=== PATIENT | female | born 1935 | race Caucasian/White ===

== ENCOUNTER → 2017-11-07 | Outpatient (CLI) | payer MEDICARE, OTHER ==
[~2017-11-07] MED LIST: THYROID
== END | disposition home or self-care (01) ==
LOC: LAB EV 10:39 → LAB SHORT 10:39
DX: N39.0 Urinary tract infection, site not specified (principal)
CPT/HCPCS: 87077; 87086; 87186

== ENCOUNTER → 2018-11-29 | Outpatient (CLI) | payer MEDICARE, OTHER | END | disposition home or self-care (01) | LOC: LAB SHORT 15:20 → LAB EV 15:20 | DX: N39.0 Urinary tract infection, site not specified (principal) | CPT/HCPCS: 87086 ==

== ENCOUNTER 2019-02-28 17:58 | Inpatient (IN) | payer MEDICARE, OTHER ==
[~2019-02-28] VITALS: Ht 165.1 cm; Wt 44.1 kg
[~2019-02-28 17:58] MED LIST changes: +EUTHYROX50 MCG PO; -THYROID
[2019-02-28 19:01] LABS: BASOPHILS ABSOLUTE AUTO 0.06 K/mm3 (0.00-0.23); BASOPHILS PERCENT AUTO 1 % (0-2); EOSINOPHILS ABSOLUTE AUTO 0.04 K/mm3 (0.00-0.68); EOSINOPHILS PERCENT AUTO 1 % (0-6); Hematocrit 37.7 % (33.0-51.0); Hemoglobin 12.3 g/dL (11.5-16.0); IMMATURE GRAN ABSOLUTE AUTO 0.01 K/mm3 (0.00-0.10); IMMATURE GRAN PERCENT AUTO 0 % (0-1); LYMPHOCYTES ABSOLUTE AUTO 2.55 K/mm3 (0.84-5.20); LYMPHOCYTES PERCENT AUTO 32 % (21-46); MONOCYTES ABSOLUTE AUTO 0.86 K/mm3 (0.16-1.47); MONOCYTES PERCENT AUTO 11 % (4-13); Mean Corpuscular HGB 31.1 pg (26.0-34.0); Mean Corpuscular HGB Conc 32.6 g/dL (31.5-36.5); Mean Corpuscular Volume 95 fL (80-100); Mean Platelet Volume 11.6 fL (9.1-12.4); NEUTROPHILS ABSOLUTE AUTO 4.38 K/mm3 (1.96-9.15); NEUTROPHILS PERCENT AUTO 55 % (41-73); Platelet Count 160 K/mm3 (150-400); RDW Coefficient Variation 13.2 % (11.7-14.2); RDW Standard Deviation 46.6 fL (35.1-46.3); Red Blood Cell Count 3.95 M/mm3 (3.80-5.20)
[2019-02-28 19:21] LABS: Alanine Aminotransfer (ALT/SGP 25 U/L (12-78); Albumin, Blood 3.6 g/dL (3.4-5.0); Albumin/Globulin Ratio 0.8 (0.8-1.8); Alk Phos 78 U/L (50-136); Anion Gap 7 mmol/L (6-16); Aspartate Aminotrans (AST/SGOT 27 U/L (12-37); Bilirubin, Total 0.4 mg/dL (0.1-1.0); Blood Urea Nitrogen 24 mg/dL (8-24); Bun/Creatinine Ratio 25.8 (12.0-20.0); CO2, Blood 26 mmol/L (21-32); Calcium, Blood 9.6 mg/dL (8.5-10.1); Chloride, Blood 102 mmol/L (98-108); Creatinine, Blood 0.93 mg/dL (0.40-1.00); Globulin, Blood 4.4 g/dL (2.2-4.0); Glomerular Filtration Rate >60 (60-); Glucose, Blood 102 mg/dL (70-99); Potassium, Blood 3.9 mmol/L (3.5-5.5); Sodium, Blood 135 mmol/L (136-145)
[2019-02-28 19:37] LABS: International Normalized Ratio 1.01; Prothrombin Time Results 10.7 Sec (9.7-11.5)
[2019-02-28 21:04] LABS: Magnesium, Blood 1.9 mg/dL (1.6-2.4)
[2019-02-28] MEDS ORDERED: ELIQUIS5 MG PO (21:12)
[2019-02-28] MEDS ORDERED: METO50ER PO (21:12)
[2019-02-28] MEDS ORDERED: CONEST.9 PO (21:13)
--- NOTE | 2019-02-28 22:10 | NUR ---
PT ARRIVAL: Pt arrived to PCU via [facility] accompanied by ED RN at 2210. Pt able to transfer self with minimal assistance from [facility] to PCU bed. VSS, pulse at 100, afib. pt in no apparent sign of distress, denies chest pain or pressure, denies palpitations, denies SOB. Pt on RA. NPO p midnight for cardiology consult. Alert and oriented, able to use call light appropriatley, steady and strong gait. Will continue to monitor.
[2019-03-01 04:09] LABS: Hematocrit 39.6 % (33.0-51.0); Hemoglobin 13.1 g/dL (11.5-16.0); Mean Corpuscular HGB 31.3 pg (26.0-34.0); Mean Corpuscular HGB Conc 33.1 g/dL (31.5-36.5); Mean Corpuscular Volume 95 fL (80-100); Mean Platelet Volume 11.7 fL (9.1-12.4); Platelet Count 172 K/mm3 (150-400); RDW Coefficient Variation 13.3 % (11.7-14.2); Red Blood Cell Count 4.19 M/mm3 (3.80-5.20); White Blood Cell Count 8.03 K/mm3 (4.00-11.30)
[2019-03-01 04:31] LABS: Alanine Aminotransfer (ALT/SGP 24 U/L (12-78); Albumin, Blood 3.6 g/dL (3.4-5.0); Albumin/Globulin Ratio 0.8 (0.8-1.8); Alk Phos 80 U/L (50-136); Anion Gap 7 mmol/L (6-16); Aspartate Aminotrans (AST/SGOT 30 U/L (12-37); Bilirubin, Total 0.4 mg/dL (0.1-1.0); Blood Urea Nitrogen 18 mg/dL (8-24); Bun/Creatinine Ratio 22.1 (12.0-20.0); CO2, Blood 28 mmol/L (21-32); Calcium, Blood 8.8 mg/dL (8.5-10.1); Chloride, Blood 105 mmol/L (98-108); Creatinine, Blood 0.81 mg/dL (0.40-1.00); Globulin, Blood 4.5 g/dL (2.2-4.0); Glomerular Filtration Rate >60 (60-); Glucose, Blood 95 mg/dL (70-99); Potassium, Blood 3.7 mmol/L (3.5-5.5); Sodium, Blood 140 mmol/L (136-145); Total Protein, Blood 8.1 g/dL (6.4-8.2)
--- NOTE | 2019-03-01 05:48 | NUR ---
Shift Summary VSS this shift, no changes from initial shift assessment. Pt remains in Afib but with no outstanding events to note on tele. Pt is asx. alert and oriented, calls appropriately, ind in room, steady gait, self cath BID per pt at baseline. Voiding wnl in bathroom. Pt expresses "constant anxiety" especially related to being in the hosptial. Cardiology to consult pt, called to ans and added to adm this shift. No acute concerns to note overnight.
--- NOTE | 2019-03-01 07:50 | NUR ---
AM NOTE. ASSUMED CARE OF PT APROX 0700. PT IS A&Ox4 AND IND IN THE ROOM. PT WAS ADMITTED FOR AFLUTTER RVR. PT WAS DIG LOADED PER NOC RN REPORT. PT IS IN AFLUTTER IN THE 90'S BUT INCREASES TO THE 120'S W/ACTIVITY. PT DENIES ANY CHEST PAIN/PRESSURE, N/V OR SOB AT THIS TIME. PT'S VS STABLE. PT HAS BEEN VOIDING IN THE TOILET BUT SELF CATHS AT HOME BID. CALL LIGHT IN REACH, WILL CONTINUE TO MONITOR.
--- NOTE | 2019-03-01 17:46 | NUR ---
SHIFT SUMMARY. NO ACUTE NEGATIVE CHANGES NOTED THIS SHIFT. PT DENIES ANY CHEST PAIN/PRESSURE AT THIS TIME. PT IS SCHEDULED TO HAVE [place]ESA SCAN TOMORROW, PT IS TO BE NPO 4 HOURS PRIOR TO SCAN, PER CHUTE MAN IF STRESS TEST COMES BACK OKAY PT CAN D/C AND FOLLOW UP OUTPATIENT. PT'S VS STABLE. PT HAS STATED SHE HAS BEEN VOIDING WELL ALL SHIFT AND HAS NOT NEEDED TO SELF CATH. PT HAS BEEN IND IN THE ROOM. CALL LIGHT IN REACH, BED IS LOCKED AND LOW WILL CONTINUE TO MONITOR UNTIL REPORT IS GIVEN TO ONCOMING RN.
--- NOTE | 2019-03-01 19:15 | NUR ---
ASSESSMENT/ASSUMED CARE PT UP AMB IN ROOM. DENIES PAIN. PT DOING ORAL CARE AND UP TO BATHROOM. GAIT STEADY. LUNGS CLEAR ON ROOMAIR. RESP EVEN AND NONLABORED. HEART RATE IRREGULAR. AFLUTTER. DENIES CHEST PAIN OR PRESSURE. NO EDEMA. BT+ ABD SOFT AND NONTENDER. IV SALINE LOCKED. PT TALKING WITH FAMILY ON THE PHONE.
--- NOTE | 2019-03-02 03:12 | NUR ---
MD CALL PT C/O BURNING, ITCHING AND FREQUENT URINATION. ALSO ACID REFLUX. RECEIVED ORDERS FOR UA AND GI COCKTAIL.
--- NOTE | 2019-03-02 06:09 | NUR ---
SHIFT SUMMARY PT RESTING QUIELTY. DENIES PAIN. C/O BURING, ITCHING AND FREQUENT URINATION. OBTAINED ORDER FOR A UA BUT PT HAS NOT VOIDED YET. VSS. PT TO HAVE A STRESS TEST THIS AM. PT UP IN ROOM AD CINTHIA. REPORT TO ON COMING NURSE
--- NOTE | 2019-03-02 07:29 | NUR ---
AM NOTE. ASSUMED CARE OF PT APROX 0700, PT IS A&Ox4 AND IND IN THE ROOM. PT WAS ADMITTED WITH AFIB/FLUTTER RVR AND IS TO HAVE ONE DAY STRESS TEST TODAY. PT'S VS STABLE AT THIS TIME, PT DENIES CHEST PAIN/PRESSURE. PT SELF CATHS AT HOME AND IS C/O OF "BURNING AND IRRITATION". PT IS TO BE NPO 4 HOURS PRIOR TO STRESS TEST. L/S CLEAR T/O, PT IS ON RA, BT NORMOACTIVE. NO EDEMA NOTED ON ASSESSMENT. WILL CONTINUE TO MONITOR.
[2019-03-02 10:36] LABS: Source, Urine Clean Catch
[2019-03-02 10:42] LABS: Appearance, Urine Cloudy (Clear); Bilirubin, Urine Neg (Neg); Blood, Urine 5+ (Neg); Color, Urine Yellow (P-Yellow); Glucose Qualitative, Urine Neg (Neg); Ketones, Urine Neg (Neg); Leukocyte Esterase, Urine 3+ (Neg); Nitrite, Urine Neg (Neg); Protein, Urine 3+ (Neg); Urobilinogen, Urine NORM (Normal); pH, Urine 6.5 (5.0-8.0)
[2019-03-02 11:01] LABS: White Blood Cells, Urine TNTC /hpf (0-5)
[2019-03-02 11:03] LABS: Bacteria Many /hpf; Squamous Epithelial Cells Rare /hpf (Few)
--- NOTE | 2019-03-02 18:08 | NUR ---
SHIFT SUMMARY. NO ACUTE NEGATIVE CHANGES NOTED THIS SHIFT. PT HAS HAD THE FIRST PART OF HER STRESS TEST AND WILL HAVE THE SECOND PART TOMORROW. PT HAS BEEN IND IN THE ROOM. UA WAS SENT D/T PT C/O OF BURNING AND UTI SYMPTOMS, UA CAME BACK POSITIVE. PT'S VS STABLE. PT DENIES CHEST PAIN/PRESSURE N/V OR SOB. CALL LIGHT IN REACH, BED IS LOCKED AND LOW WILL CONTINUE TO MONITOR UNTIL REPORT IS GIVEN TO ONCOMING RN.
--- NOTE | 2019-03-02 21:36 | NUR ---
ASSUMED CARE OF PATIENT AT APPROXIMATELY 1910 FROM RYAN Caballero RN. PATIENT ALERT AND ORIENTED X4; INDEPENDENT IN ROOM. PATIENT TO HAVE 2ND PART OF STRESS TEST IN AM. PATIENT ANXIOUS AT TIMES; SELF CATHS SELF BID. PATIENT DENIES PAIN, NUMBNESS, TINGLING, DIZZINESS AND NAUSEA. AFLUTTER W/ A RATE IN THE 90'S ON TELE; OXYGEN SATURATION ABOVE 90% ON ROOM AIR. PIV S/L. PATIENT CURRENTLY RESTING IN BED; CALL LIGHT IN REACH; BED IN LOWEST POSISTION; WILL CONTINUE TO MONITOR AND ASSESS UNTIL END OF SHIFT.
[2019-03-03 04:58] LABS: BASOPHILS ABSOLUTE AUTO 0.06 K/mm3 (0.00-0.23); BASOPHILS PERCENT AUTO 1 % (0-2); EOSINOPHILS ABSOLUTE AUTO 0.16 K/mm3 (0.00-0.68); EOSINOPHILS PERCENT AUTO 2 % (0-6); Hematocrit 45.1 % (33.0-51.0); IMMATURE GRAN ABSOLUTE AUTO 0.02 K/mm3 (0.00-0.10); IMMATURE GRAN PERCENT AUTO 0 % (0-1); LYMPHOCYTES ABSOLUTE AUTO 4.43 K/mm3 (0.84-5.20); LYMPHOCYTES PERCENT AUTO 41 % (21-46); MONOCYTES ABSOLUTE AUTO 0.94 K/mm3 (0.16-1.47); MONOCYTES PERCENT AUTO 9 % (4-13); Mean Corpuscular HGB 31.6 pg (26.0-34.0); Mean Corpuscular HGB Conc 33.3 g/dL (31.5-36.5); Mean Corpuscular Volume 95 fL (80-100); Mean Platelet Volume 11.4 fL (9.1-12.4); NEUTROPHILS ABSOLUTE AUTO 5.21 K/mm3 (1.96-9.15); NEUTROPHILS PERCENT AUTO 48 % (41-73); Platelet Count 179 K/mm3 (150-400); RDW Coefficient Variation 13.2 % (11.7-14.2); RDW Standard Deviation 46.1 fL (35.1-46.3); Red Blood Cell Count 4.75 M/mm3 (3.80-5.20); White Blood Cell Count 10.82 K/mm3 (4.00-11.30)
[2019-03-03 05:20] LABS: Albumin, Blood 3.3 g/dL (3.4-5.0); Albumin/Globulin Ratio 0.8 (0.8-1.8); Bilirubin, Total 0.3 mg/dL (0.1-1.0); Bun/Creatinine Ratio 36.3 (12.0-20.0); Calcium, Blood 8.9 mg/dL (8.5-10.1); Creatinine, Blood 0.99 mg/dL (0.40-1.00); Globulin, Blood 4.3 g/dL (2.2-4.0); Magnesium, Blood 2.1 mg/dL (1.6-2.4); Phosphorus, Blood 2.4 mg/dL (2.5-4.9); Total Protein, Blood 7.6 g/dL (6.4-8.2)
--- NOTE | 2019-03-03 06:24 | NUR ---
PATIENT HR INCREASED TO 140'S WHILE PATIENT WAS UP; RECOVERED WHEN PATIENT BACK IN BED. VSS. PATIENT SLEPT ABOUT EIGHT HOURS. WILL CONTINUE TO MONITOR AND ASSESS UNTIL END OF SHIFT.
--- NOTE | 2019-03-03 08:33 | NUR ---
Spoke with the patient at 0745 this morning, just following bedside report given by Stephanie Curry RN. The pt is mildly anxious. States that she has been having multiple bowel movements this morning, which she attributes to having gone so many days without one. No c/o diarrhea. Self-catheterizing which she does at home, twice a day. Heart rate was aflutter at 95 bpm while sleeping, but after bedside report noted that her heart rate was 125 bpm at rest. Blood pressure stable, no c/o pain, dyspnea or discomfort. Plan for second portion of the stress test Lexiscan today.
--- NOTE | 2019-03-03 09:45 | NUR ---
0930 C/O nausea following the Lexiscan. Zofran was given and she is now eating her breakfast.
[2019-03-03] MEDS ORDERED: LANOXIN125 MCG PO (14:32)
[2019-03-03] MEDS ORDERED: ENTRESTO 24 MG1 EACH PO (14:34)
[2019-03-09] MEDS ORDERED: CONEST.9 PO (15:11)
== END 2019-03-03 15:20 | disposition home or self-care (01) | DRG 309 ==
LOC: ER 17:58 → PCU 17:59
PROVIDERS: Emergency Medicine; Hospitalist; ADMIT Internal Medicine
DX: I48.0 Paroxysmal atrial fibrillation (principal); I50.20 Unspecified systolic (congestive) heart failure; E46 Unspecified protein-calorie malnutrition; Z68.1 Body mass index [BMI] 19.9 or less, adult; R64 Cachexia; Z87.891 Personal history of nicotine dependence; I48.92 Unspecified atrial flutter; I42.8 Other cardiomyopathies; F41.9 Anxiety disorder, unspecified; I27.20 Pulmonary hypertension, unspecified; E78.5 Hyperlipidemia, unspecified; I07.1 Rheumatic tricuspid insufficiency; I51.3 Intracardiac thrombosis, not elsewhere classified; I11.0 Hypertensive heart disease with heart failure; I50.82 Biventricular heart failure
CPT/HCPCS: 36415; 71046; 78452; 80053; 81001; 83735; 83880; 84100; 84484; 85025; 85027; 85610; 85730; 93005; 93010; 93017; 93306; 96374; 96375; 96376; 99285-25; A9270; A9500; C8929; G0378; J0706; J1160; J2405; J2785; Q9957

== ENCOUNTER 2019-03-12 05:46 | Day surgery (SDC) | payer MEDICARE, OTHER ==
[~2019-03-12] VITALS: Ht 165.1 cm; Wt 52.0 kg
[~2019-03-12 05:46] MED LIST changes: +CONEST.9 PO; +ELIQUIS5 MG PO; +ENTRESTO 24 MG1 EACH PO; +LANOXIN125 MCG PO; +METO50ER PO
--- NOTE | 2019-03-12 08:45 | NUR ---
DISCHARGE PT REMAINED A&OX3 AND DENIED ANY PAIN DURING RECOVERY. IV DC'D WITH CANULA IN TACT. PT ABLE TO DRESS SELF INDEPENDANTLY AND DRINK WATER. DISCHARGE PAPERWORK GONE OVER WITH PT. PT DENIED ANY QUESIONS OR CONCERNS IN REGUARDS TO THE DISCHARGE EDUCATION.
== END 2019-03-12 22:53 | disposition home or self-care (01) ==
LOC: MHTC 05:46
DX: I48.91 Unspecified atrial fibrillation (principal); I11.0 Hypertensive heart disease with heart failure; I50.9 Heart failure, unspecified; Z88.8 Allergy status to other drugs, medicaments and biological substances; Z88.5 Allergy status to narcotic agent; Z88.6 Allergy status to analgesic agent; Z79.01 Long term (current) use of anticoagulants; Z79.899 Other long term (current) drug therapy
CPT/HCPCS: 93312; 93325; J2704; J7030

== ENCOUNTER → 2019-09-11 | Outpatient (CLI) | payer MEDICARE, OTHER | END | disposition home or self-care (01) | LOC: LAB SHORT 11:54 → PLD 11:54 | DX: L57.0 Actinic keratosis (principal) | CPT/HCPCS: 88305; 88312; 88313 ==

== ENCOUNTER → 2019-12-13 | Outpatient (CLI) | payer MEDICARE, OTHER ==
[2019-12-13 16:16] LABS: Hematocrit 31.7 % (33.0-51.0); Hemoglobin 10.5 g/dL (11.5-16.0); Mean Corpuscular HGB 32.7 pg (26.0-34.0); Mean Corpuscular HGB Conc 33.1 g/dL (31.5-36.5); Mean Corpuscular Volume 99 fL (80-100); Mean Platelet Volume 12.3 fL (9.1-12.4); Platelet Count 250 K/mm3 (150-400); RDW Coefficient Variation 12.9 % (11.7-14.2); RDW Standard Deviation 46.5 fL (35.1-46.3); Red Blood Cell Count 3.21 M/mm3 (3.80-5.20)
[2019-12-13 16:32] LABS: Albumin, Blood 3.6 g/dL (3.4-5.0); Albumin/Globulin Ratio 0.7 (0.8-1.8); Bilirubin, Total 0.4 mg/dL (0.1-1.0); Bun/Creatinine Ratio 25.6 (12.0-20.0); Calcium, Blood 10.2 mg/dL (8.5-10.1); Creatinine, Blood 1.6 mg/dL (0.40-1.00); Globulin, Blood 4.9 g/dL (2.2-4.0); Potassium, Blood 4.7 mmol/L (3.5-5.5); Total Protein, Blood 8.5 g/dL (6.4-8.2)
[2019-12-13 17:38] LABS: White Blood Cell Count 9.99 K/mm3 (4.00-11.30)
[2019-12-13 17:48] LABS: BAND PERCENT MAN 1 % (0-8); BASOPHILS PERCENT MAN 0 % (0-2); EOSINOPHILS ABSOLUTE MAN 0.09 K/mm3 (0.00-0.68); EOSINOPHILS PERCENT MAN 1 % (0-6); LYMPHOCYTES ABSOLUTE MAN 3.79 K/mm3 (0.84-5.20); LYMPHOCYTES PERCENT MAN 38 % (21-46); MONOCYTES ABSOLUTE MAN 0.79 K/mm3 (0.16-1.47); MONOCYTES PERCENT MAN 8 % (4-13); NEUTROPHILS ABSOLUTE MAN 5.29 K/mm3 (1.96-9.15); SEG NEUTROPHILS PERCENT MAN 52 % (41-73); TOTAL CELLS COUNTED 100
== END | disposition home or self-care (01) ==
LOC: LAB SHORT 16:07 → LAB EV 16:07
PROVIDERS: Family Medicine
DX: R05 Cough (principal); R63.4 Abnormal weight loss; R30.9 Painful micturition, unspecified
CPT/HCPCS: 80053; 83880; 84443; 85025; 87086

== ENCOUNTER → 2019-12-24 | Outpatient (CLI) | payer MEDICARE, OTHER ==
[2019-12-28 10:09] LABS: M-SPIKE, % Not Observed % (Not Observed); PROTEIN,TOTAL,URINE 8.1 mg/dL (Not Estab.)
== END | disposition home or self-care (01) ==
LOC: LAB SHORT 08:45 → LAB EV 08:45 → LAB SHORT 12-25 10:50
PROVIDERS: Student in an Organized Health Care Education/Training Program
DX: E88.09 Other disorders of plasma-protein metabolism, not elsewhere classified (principal)
CPT/HCPCS: 84156; 84166

== ENCOUNTER → 2020-01-14 | Outpatient (CLI) | payer MEDICARE, OTHER | END | disposition home or self-care (01) | LOC: LAB SHORT 13:56 → LAB EV 13:56 | DX: N39.0 Urinary tract infection, site not specified (principal) | CPT/HCPCS: 87086 ==

== ENCOUNTER → 2020-02-04 | Outpatient (CLI) | payer MEDICARE, OTHER ==
[2020-02-07 13:08] LABS: M-SPIKE, % Not Observed % (Not Observed); PROTEIN,TOTAL,URINE 8.2 mg/dL (Not Estab.)
== END | disposition home or self-care (01) ==
LOC: LAB SHORT 07:00 → EDSTATUS 01-14 17:40 → LAB FUT 01-14 17:40
PROVIDERS: Internal Medicine
DX: N17.9 Acute kidney failure, unspecified (principal)
CPT/HCPCS: 81050; 84166

== ENCOUNTER → 2020-06-13 | Outpatient (CLI) | payer MEDICARE, OTHER | END | disposition home or self-care (01) | LOC: LAB 08:38 → LAB SHORT 08:38 | DX: R30.9 Painful micturition, unspecified (principal) | CPT/HCPCS: 87086 ==

== ENCOUNTER → 2020-09-25 | Outpatient (CLI) | payer MEDICARE, OTHER ==
[2020-09-25 16:12] LABS: Appearance, Urine Hazy (Clear); Bilirubin, Urine Neg (Neg); Blood, Urine 2+ (Neg); Color, Urine Yellow (P-Yellow); Glucose Qualitative, Urine Neg (Neg); Ketones, Urine Neg (Neg); Leukocyte Esterase, Urine 3+ (Neg); Nitrite, Urine Neg (Neg); Protein, Urine Neg (Neg); Urobilinogen, Urine NORM (Normal); pH, Urine 6.5 (5.0-8.0)
[2020-09-25 16:35] LABS: Bacteria Mod /hpf; Squamous Epithelial Cells Few /hpf (Few); White Blood Cells, Urine TNTC /hpf (0-5)
== END | disposition home or self-care (01) ==
LOC: LAB SHORT 13:28 → LAB 13:28
PROVIDERS: Internal Medicine Hematology & Oncology
DX: D47.2 Monoclonal gammopathy (principal); R30.0 Dysuria
CPT/HCPCS: 81001; 87077; 87086; 87186

== ENCOUNTER → 2020-10-20 | Outpatient (CLI) | payer MEDICARE, OTHER | END | disposition home or self-care (01) | LOC: LAB 11:33 → LAB SHORT 11:33 | DX: R30.9 Painful micturition, unspecified (principal) | CPT/HCPCS: 87086 ==

== ENCOUNTER → 2021-09-28 | Outpatient (CLI) | payer MEDICARE, OTHER | END | disposition home or self-care (01) | LOC: LAB 16:09 → LAB SHORT 16:09 | DX: L02.519 Cutaneous abscess of unspecified hand (principal) | CPT/HCPCS: 87070; 87075; 87205 ==

== ENCOUNTER → 2021-12-14 | Outpatient (CLI) | payer MEDICARE, OTHER | END | disposition home or self-care (01) | LOC: LAB SHORT 12:44 → LAB 12:44 | DX: N39.0 Urinary tract infection, site not specified (principal) | CPT/HCPCS: 87077; 87086; 87186 ==

== ENCOUNTER → 2022-08-03 | Outpatient (CLI) | payer MEDICARE, OTHER | END | disposition home or self-care (01) | LOC: LAB SHORT 10:15 → LAB 10:15 | DX: N39.0 Urinary tract infection, site not specified (principal) | CPT/HCPCS: 87077; 87086; 87186 ==

== ENCOUNTER 2023-04-05 08:56 | Inpatient (IN) | payer MEDICARE, OTHER ==
[2023-04-05] VITALS (24 sets, daily range): BP systolic 98–135; BP diastolic 45–73
[~2023-04-05] VITALS: Ht 149.9 cm; Wt 44.2 kg
[2023-04-05] MEDS ORDERED: MIRTAZAPINE7.5 M5 PO (09:15)
[2023-04-05 09:30] LABS: Calcium, Ionized (POC) 1.17 mmol/L (1.10-1.46); Chloride (POC) 101 mmol/L (98-108); Creatinine (POC) 0.9 mg/dL (0.6-1.0); Glucose (ISTAT POC) 124 mg/dL (70-99); Hemoglobin (POC) 7.1 g/dL (12.0-16.0); Sodium (POC) 138 mmol/L (135-148); Total CO2 (POC) 26 mmol/L (21-32)
[2023-04-05 09:35] LABS: BASOPHILS ABSOLUTE AUTO 0.04 K/mm3 (0.00-0.23); BASOPHILS PERCENT AUTO 0 % (0-2); EOSINOPHILS ABSOLUTE AUTO 0.01 K/mm3 (0.00-0.68); EOSINOPHILS PERCENT AUTO 0 % (0-6); Hematocrit 21.7 % (33.0-51.0); IMMATURE GRAN ABSOLUTE AUTO 0.04 K/mm3 (0.00-0.10); IMMATURE GRAN PERCENT AUTO 0 % (0-1); LYMPHOCYTES ABSOLUTE AUTO 1.72 K/mm3 (0.84-5.20); LYMPHOCYTES PERCENT AUTO 19 % (21-46); MONOCYTES ABSOLUTE AUTO 0.89 K/mm3 (0.16-1.47); MONOCYTES PERCENT AUTO 10 % (4-13); Mean Corpuscular HGB 32.6 pg (26.0-34.0); Mean Corpuscular HGB Conc 32.3 g/dL (31.5-36.5); Mean Corpuscular Volume 101 fL (80-100); Mean Platelet Volume 10.9 fL (9.1-12.4); NEUTROPHILS ABSOLUTE AUTO 6.51 K/mm3 (1.96-9.15); NEUTROPHILS PERCENT AUTO 71 % (41-73); Platelet Count 143 K/mm3 (150-400); RDW Coefficient Variation 15.7 % (11.7-14.2); RDW Standard Deviation 57.9 fL (35.1-46.3); Red Blood Cell Count 2.15 M/mm3 (3.80-5.20); White Blood Cell Count 9.21 K/mm3 (4.00-11.30)
[2023-04-05 09:46] LABS: Albumin, Blood 2.1 g/dL (3.4-5.0); Albumin/Globulin Ratio 0.8 (0.8-1.8); Bilirubin, Total 0.5 mg/dL (0.1-1.0); Bun/Creatinine Ratio 30.2 (12.0-20.0); Calcium, Blood 7.9 mg/dL (8.5-10.1); Creatinine, Blood 0.83 mg/dL (0.40-1.00); Globulin, Blood 2.8 g/dL (2.2-4.0); Magnesium, Blood 1.6 mg/dL (1.6-2.4); Total Protein, Blood 4.9 g/dL (6.4-8.2)
[2023-04-05 09:52] LABS: International Normalized Ratio 1.19; Prothrombin Time Results 12.4 Sec (9.7-11.5)
[2023-04-05 14:22] LABS: Source, Urine Clean Catch
[2023-04-05 14:24] LABS: Appearance, Urine Hazy (Clear); Bilirubin, Urine Neg (Neg); Blood, Urine 4+ (Neg); Color, Urine Yellow (P-Yellow); Glucose Qualitative, Urine Neg (Neg); Ketones, Urine Neg (Neg); Leukocyte Esterase, Urine Neg (Neg); Nitrite, Urine Pos (Neg); Protein, Urine 2+ (Neg); Urobilinogen, Urine NORM (Normal)
[2023-04-05 14:32] LABS: Amorphous Light (0-Heavy); Bacteria Many /hpf; Hyaline Casts 0-2 /lpf (0-2); Squamous Epithelial Cells Few /hpf (Few)
[2023-04-05 16:34] LABS: Hematocrit 25.6 % (33.0-51.0); Hemoglobin 8.4 g/dL (11.5-16.0)
--- NOTE | 2023-04-05 17:26 | NUR ---
PT ADMITTED TO ICU FROM ER AT 1540 FOR "ANEMIA". PT ARRIVED AWAKE AND ALERT, DENIES C/O PAIN. "I JUST FEEL WEAK". ONE UNIT OF BLOOD GIVEN AND COMPLETED IN ER. ON ADMIT LEVOPHED AT 0.5MCG, LEVOPHED STOPPED PRIOR TO TRANSFER TO ICU BED. BP STABLE W MAP >65. PT IN AFIB W RATE AROUND 100. SATS >95% ON RA. LUNGS CLEAR TO RIGHT SIDE W SOME SCATTERED WHEEZES TO LEFT, DIMINISHED TO BASES. DR COURTNEY AT BEDSIDE TO SEE PT SHORTLY AFTER ADMIT; FULL UPDATE GIVEN. LASIX 20MG ORDERED AND GIVEN. H&H REPEATED, RESULTS 8.4/25.6. PT SELF CATHS AND WAS STRAIGHT CATHED IN ER W 320CC OUTPUT. LARGE SKIN TEAR NOTED TO RIGHT FOREARM FROM FALL AT HOME. AREA CLEANED AND DRESSED. RIGHT LEG TO BE ADDRESSED SHORTLY (RIGHT VESSEL/VARICOSE DESEAN RUPTURED AT HOME) SAFETY SUPERVISOR IS AT BEDSIDE COMPLETING ECHO. BRUISE NOTED TO RIGHT BUTTOCK; SCATTERED BRUISES T/O. 2GM MAG INFUSING.
--- NOTE | 2023-04-05 18:38 | NUR ---
PICTURES TAKEN OF RIGHT FOREARM AND RIGHT VERICOSE VEIN/BLEEDING SITE; THERE IS A SMALL PUNCTURE NOTED THAT IS NO LONGER BLEEDING. AREA CLEANED AND COVERED. LIGHT COMPRESSION WRAP PLACED TO RIGHT LEG PER DR COURTNEY. BP REMAINS STABLE.
--- NOTE | 2023-04-05 19:45 | NUR ---
ASSESSMENT/ASSUMED CARE PT RESTING QUIETLY IN BED. DENIES PAIN OR DISCOMFORT. UP TO BATHROOM WITH 1 STANDBY ASSIST FOR LINES. LUNGS CLEAR ON ROOMAIR. SPO2 100%. RESP EVEN AND NONLABORED. DENIES SOB OR COUGH. HEART RATE IRREGULAR-AFIB IN THE 70'S. BP STABLE. DENIES CHEST PAIN OR PRESSURE. NO EDEMA NOTED. BT+ ABD SOFT AND NONTENDER. DENIES N/V. IV RIGHT AND LEFT AC SALINE LOCKED, BOTH SITES CLEAR. DRSG TO RIGHT ARM INTACT. LIGHT COMPRESSION DRSG TO RIGHT LOWER LEG INTACT. DENIES NUMBNESS OR TINGLING. PT USING CELL PHONE AND TALKING WITH FAMILY ON Lai[place]ao.
[2023-04-06] VITALS (10 sets, daily range): BP systolic 91–124; BP diastolic 45–80
--- NOTE | 2023-04-06 01:02 | NUR ---
MD CALL PT REQUESTING "SOMTHING FOR SLEEP" CALL TO DR BEE, RECEIVED ORDER
[2023-04-06 02:26] LABS: Source, Urine Straight Cath
[2023-04-06 02:29] LABS: Bilirubin, Urine Neg (Neg); Blood, Urine Neg (Neg); Glucose Qualitative, Urine Neg (Neg); Ketones, Urine Neg (Neg); Leukocyte Esterase, Urine 3+ (Neg); Nitrite, Urine Neg (Neg); Protein, Urine Neg (Neg); Urobilinogen, Urine NORM (Normal); pH, Urine 6.5 (5.0-8.0)
[2023-04-06 02:40] LABS: Appearance, Urine Hazy (Clear); Color, Urine Pale Yellow (P-Yellow)
[2023-04-06 02:41] LABS: Bacteria Mod /hpf; Red Blood Cells, Urine 0-2 /hpf (0-2); Squamous Epithelial Cells Few /hpf (Few)
[2023-04-06 02:42] LABS: Amorphous Light (0-Heavy)
[2023-04-06 04:25] LABS: Hematocrit 29.2 % (33.0-51.0); Hemoglobin 9.7 g/dL (11.5-16.0); Mean Corpuscular HGB 30.8 pg (26.0-34.0); Mean Corpuscular HGB Conc 33.2 g/dL (31.5-36.5); Mean Platelet Volume 11.6 fL (9.1-12.4); Platelet Count 164 K/mm3 (150-400); RDW Coefficient Variation 18.6 % (11.7-14.2); RDW Standard Deviation 63.5 fL (35.1-46.3); Red Blood Cell Count 3.15 M/mm3 (3.80-5.20)
[2023-04-06 04:30] LABS: Mean Corpuscular Volume 93 fL (80-100); White Blood Cell Count 11.08 K/mm3 (4.00-11.30)
[2023-04-06 04:33] LABS: Albumin, Blood 2.4 g/dL (3.4-5.0); Albumin/Globulin Ratio 0.8 (0.8-1.8); Bilirubin, Total 0.8 mg/dL (0.1-1.0); Bun/Creatinine Ratio 25.2 (12.0-20.0); Calcium, Blood 8.2 mg/dL (8.5-10.1); Creatinine, Blood 0.91 mg/dL (0.40-1.00); Globulin, Blood 3.2 g/dL (2.2-4.0); Phosphorus, Blood 2.6 mg/dL (2.5-4.9); Potassium, Blood 3.8 mmol/L (3.5-5.5); Total Protein, Blood 5.6 g/dL (6.4-8.2)
[2023-04-06 04:53] LABS: BAND PERCENT MAN 1 % (0-8); BASOPHILS PERCENT MAN 0 % (0-2); EOSINOPHILS PERCENT MAN 0 % (0-6); LYMPHOCYTES % ATYPICAL MANUAL 1 % (0-0); LYMPHOCYTES PERCENT MAN 18 % (21-46); MONOCYTES ABSOLUTE MAN 0.66 K/mm3 (0.16-1.47); MONOCYTES PERCENT MAN 6 % (4-13); NEUTROPHILS ABSOLUTE MAN 8.31 K/mm3 (1.96-9.15); SEG NEUTROPHILS PERCENT MAN 74 % (41-73); TOTAL CELLS COUNTED 100
--- NOTE | 2023-04-06 05:55 | NUR ---
SHIFT SUMMARY PT RESTING QUIETLY AT THIS TIME. AWAKE MOST OF THE NIGHT UP TO THE BATHROOM WITH STANDBY ASSIST. DID POST VOID BLADDER SCAN AND THAN STRAIGHT CATH FOR 600ML. UA SENT. PT A&O. MOVING SELF IN BED. PLACED ON 2 LITERS O2 WHILE SLEEPING THIS MORNING DUE TO PT HAVE SHALLOW BREATHS AND MOUTH BREATHING, SPO2 70-100% BEFORE O2 PLACED. VSS. REPORT TO ON COMING NURSE
[2023-04-06] MEDS ORDERED: LOSARTAN POTASS25 M2 PO (11:14)
[2023-04-06] MEDS ORDERED: CONEST.625 PO (11:15)
[2023-04-06] MEDS ORDERED: MIRTAZAPINE7.5 M1 PO (11:15)
[2023-04-06] MEDS ORDERED: PRADAXA110 MG PO (11:16)
--- NOTE | 2023-04-06 11:29 | NUR ---
ASSUMED CARE CARE WAS ASSUMED OF PT AT 0700, REPORT GIVEN BY SHANNA ABEBE. PT A/O X4, ABLE TO ANSWER QUESTIONS APPROPRIATELY AND MAKE NEEDS KNOWN. PT CHANGED TO MEDICAL FLOOR STATUS THIS MORNING BY DR. COURTNEY. PT ON RA, O2 SATS > 95%. BP SOFT, SBP 90s-100s. CORRESPONDENCE CLERK REFLECTS AFIB, HR 80s AT THIS TIME. PT ABLE TO AMBULATE TO BATHROOM WITH SBA. PT HAS HX OF ANOREXIA NERVOSA, THIS RN OBSERVED PT EAT SOME OF BREAKFAST DURING MEDICATION ADMINISTRATION THIS MORNING.
[2023-04-06] MEDS ORDERED: DIGOX125 MC1 PO (16:25)
[2023-04-06] MEDS ORDERED: FURO20 PO (16:26)
[2023-04-06] MEDS ORDERED: CIPR500 PO (16:27)
[2023-04-06] MEDS ORDERED: POTA10T PO (16:43)
--- NOTE | 2023-04-06 18:17 | NUR ---
SHIFT SUMMARY/DISCHARGE PT REMAINED A/O X4 THROUGHOUT THIS SHIFT. PT WAS ABLE TO USE THE CALL LIGHT APPROPRIATELY AND MAKE NEEDS KNOWN. WHEN TALKING TO PT, APPEARED TO HAVE SOME SUBTLE MEMORY ISSUES. GRANDDAUGHTER CAME TO PICK PATIENT UP AND STATED SHE WAS GOING TO BRING IT UP TO PCP, DR. ARIAS, AT FOLLOW-UP APPOINTMENT. PT REMAINED ON RA THIS SHIFT. VSS. GLORIA BANDAGE REMAINED INTACT, PT DISCHARGED WITH IT REMAINING ON HER RIGHT LEG. DISCHARGE INSTRUCTIONS GIVEN TO PATIENT AND HER GRANDDAUGHTER, MEDICATIONS FAXED TO [facility] PER PT REQUEST. PT VERBALIZES SHE WANTED TO MAKE FOLLOW-UP APPT HERSELF, GRANDDAUGHTER AWARE. PT LEFT AT 1810.
== END 2023-04-06 18:10 | disposition home or self-care (01) | DRG 811 ==
LOC: ER 08:56 → ICUE 12:33
PROVIDERS: Internal Medicine; Student in an Organized Health Care Education/Training Program; ADMIT Family Medicine
PROC: 30233N1 Transfusion of Nonautologous Red Blood Cells into Peripheral Vein, Percutaneous Approach (ICD-10-PCS; principal; 2023-04-05)
PROC: 3E033XZ Introduction of Vasopressor into Peripheral Vein, Percutaneous Approach (ICD-10-PCS; 2023-04-05)
DX: D62 Acute posthemorrhagic anemia (principal); I50.23 Acute on chronic systolic (congestive) heart failure; R57.0 Cardiogenic shock; R57.8 Other shock; N39.0 Urinary tract infection, site not specified; I48.20 Chronic atrial fibrillation, unspecified; F50.00 Anorexia nervosa, unspecified; Z68.1 Body mass index [BMI] 19.9 or less, adult; I11.0 Hypertensive heart disease with heart failure; I83.891 Varicose veins of right lower extremity with other complications; I27.20 Pulmonary hypertension, unspecified; F41.0 Panic disorder [episodic paroxysmal anxiety]; E03.9 Hypothyroidism, unspecified; Z88.5 Allergy status to narcotic agent; Z88.1 Allergy status to other antibiotic agents; Z88.8 Allergy status to other drugs, medicaments and biological substances; Z79.01 Long term (current) use of anticoagulants; Z79.890 Hormone replacement therapy; Z87.891 Personal history of nicotine dependence
CPT/HCPCS: 36415; 36430; 51701; 71045; 80047; 80053; 81001; 83605; 83735; 83880; 84100; 84484; 85014; 85018; 85025; 85610; 85730; 86850; 86900; 86901; 86923; 87077; 87086; 87186; 93005; 93010; 93306; 96361; 96365; 99285-25; A9270; J1940; J3475; J7030; J7060; P9016

== ENCOUNTER 2023-08-13 19:08 | Inpatient (IN) | payer MEDICARE, OTHER ==
[~2023-08-13] VITALS: Ht 165.1 cm; Wt 44.5 kg
[~2023-08-13 19:08] MED LIST changes: +CIPR500 PO; +CONEST.625 PO; +DIGOX125 MC1 PO; +FURO20 PO; +LOSARTAN POTASS25 M2 PO; +MIRTAZAPINE7.5 M1 PO; +MIRTAZAPINE7.5 M5 PO; +POTA10T PO; +PRADAXA110 MG PO
[2023-08-13 19:59] LABS: BASOPHILS ABSOLUTE AUTO 0.03 K/mm3 (0.00-0.23); BASOPHILS PERCENT AUTO 0 % (0-2); EOSINOPHILS ABSOLUTE AUTO 0.03 K/mm3 (0.00-0.68); EOSINOPHILS PERCENT AUTO 0 % (0-6); Hematocrit 36.9 % (33.0-51.0); Hemoglobin 11.5 g/dL (11.5-16.0); IMMATURE GRAN ABSOLUTE AUTO 0.01 K/mm3 (0.00-0.10); IMMATURE GRAN PERCENT AUTO 0 % (0-1); LYMPHOCYTES ABSOLUTE AUTO 1.39 K/mm3 (0.84-5.20); LYMPHOCYTES PERCENT AUTO 20 % (21-46); MONOCYTES PERCENT AUTO 10 % (4-13); Mean Corpuscular HGB 27.8 pg (26.0-34.0); Mean Corpuscular HGB Conc 31.2 g/dL (31.5-36.5); Mean Corpuscular Volume 89 fL (80-100); Mean Platelet Volume 10.2 fL (9.1-12.4); NEUTROPHILS ABSOLUTE AUTO 4.71 K/mm3 (1.96-9.15); NEUTROPHILS PERCENT AUTO 69 % (41-73); Platelet Count 297 K/mm3 (150-400); RDW Coefficient Variation 24.9 % (11.7-14.2); Red Blood Cell Count 4.13 M/mm3 (3.80-5.20); White Blood Cell Count 6.87 K/mm3 (4.00-11.30)
[2023-08-13 20:17] LABS: Albumin, Blood 2.4 g/dL (3.4-5.0); Albumin/Globulin Ratio 0.5 (0.8-1.8); Bilirubin, Total 0.4 mg/dL (0.1-1.0); Bun/Creatinine Ratio 30.8 (12.0-20.0); Calcium, Blood 9.5 mg/dL (8.5-10.1); Creatinine, Blood 1.07 mg/dL (0.40-1.00); Potassium, Blood 4.5 mmol/L (3.5-5.5); Total Protein, Blood 7.4 g/dL (6.4-8.2)
[2023-08-13] MEDS ORDERED: NS 1,000 ML IV SCH (22:35)
[2023-08-13] MEDS ORDERED: Ondansetron HCl 2 MG / ML 2ML Vial IV PRN (22:35)
[2023-08-13 22:59] LABS: Free Thyroxine 1.25 ng/dL (0.70-1.60); Magnesium, Blood 1.9 mg/dL (1.6-2.4); Thyroid Stimulating Hormone 11.2 uIU/mL (0.360-4.800)
[2023-08-13] MEDS ORDERED: Enoxaparin 40 MG/0.4 ML SYR SC SCH (23:00)
[2023-08-13] MEDS ORDERED: TORSE20 PO (23:07)
[2023-08-13] MEDS ORDERED: LOSA25 PO (23:08)
[2023-08-13] MEDS ORDERED: ELIQUIS2.5 MG PO (23:09)
[2023-08-13] MEDS ORDERED: CONEST.625 PO (23:09)
[2023-08-13] MEDS ORDERED: CEPH500 PO (23:20)
[2023-08-13] MEDS ORDERED: POTA10T PO (23:21)
[2023-08-13 23:40] LABS: International Normalized Ratio 1.08; Prothrombin Time Results 11.5 Sec (9.7-11.5)
[2023-08-14 00:40] VITALS: BP 113/76
[2023-08-14 01:31] LABS: Source, Urine Straight Cath
[2023-08-14 01:33] LABS: Bilirubin, Urine Neg (Neg); Blood, Urine Neg (Neg); Glucose Qualitative, Urine Neg (Neg); Ketones, Urine Neg (Neg); Leukocyte Esterase, Urine 1+ (Neg); Nitrite, Urine Neg (Neg); Protein, Urine Neg (Neg); Specific Gravity, Urine 1.015 (1.003-1.022); Urobilinogen, Urine NORM (Normal)
[2023-08-14 01:45] LABS: Appearance, Urine Clear (Clear); Color, Urine Yellow (P-Yellow)
[2023-08-14 01:47] LABS: Amorphous Light (0-Heavy); Bacteria Rare /hpf; Red Blood Cells, Urine Not Seen /hpf (0-2); Squamous Epithelial Cells Few /hpf (Few); White Blood Cells, Urine 0-2 /hpf (0-5)
[2023-08-14 02:11] VITALS: BP 120/75
--- NOTE | 2023-08-14 04:34 | NUR ---
SHIFT SUMMARY 88 YR F ADMITTED ON 08/13/23. FULL CODE. PT IS VERY THIN DUE TO ANOREXIA AND MALNOURISHMENT, AND SHE IS HAVING A VERY HARD TIME GETTING COMFORTABLE IN BED. 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 SHE IS [place]. MK RECENTLY WENT TO A CARE FACILITY SO SHE IS NOW SAFE AT HOME. SHE APPEARS TO BE VERY ANXIOUS AND UNCOMFORTABLE. NO ADVERSE EVENTS FROM TELE, AND NO C/O CHEST PAIN OR SOB. SHE STATES THAT HER RIGHT LOWER LEG WOUND IS NOT CAUSING HER PAIN. IT IS CURRENTLY COVERED W/ ABD PAD AND GAUZE.
[2023-08-14] MEDS ORDERED: LORazepam 2 MG/ML 1ML Injection IV ONE (05:05)
[2023-08-14] MEDS ORDERED: Acetaminophen 325 MG TABLET PO PRN (05:05)
[2023-08-14 05:40] LABS: Albumin, Blood 2.2 g/dL (3.4-5.0); Albumin/Globulin Ratio 0.5 (0.8-1.8); Bilirubin, Total 0.5 mg/dL (0.1-1.0); Bun/Creatinine Ratio 27.9 (12.0-20.0); Calcium, Blood 9.3 mg/dL (8.5-10.1); Creatinine, Blood 1.11 mg/dL (0.40-1.00); Globulin, Blood 4.4 g/dL (2.2-4.0); Potassium, Blood 3.9 mmol/L (3.5-5.5); Total Protein, Blood 6.6 g/dL (6.4-8.2)
[2023-08-14 05:43] LABS: Hematocrit 35.6 % (33.0-51.0); Hemoglobin 11.1 g/dL (11.5-16.0); Mean Corpuscular HGB 27.8 pg (26.0-34.0); Mean Corpuscular HGB Conc 31.2 g/dL (31.5-36.5); Mean Corpuscular Volume 89 fL (80-100); Mean Platelet Volume 11.2 fL (9.1-12.4); Platelet Count 316 K/mm3 (150-400); RDW Coefficient Variation 24.9 % (11.7-14.2); RDW Standard Deviation 80.2 fL (35.1-46.3); Red Blood Cell Count 3.99 M/mm3 (3.80-5.20)
[2023-08-14 05:44] LABS: White Blood Cell Count 7.12 K/mm3 (4.00-11.30)
[2023-08-14 05:53] LABS: BASOPHILS PERCENT MAN 0 % (0-2); EOSINOPHILS PERCENT MAN 0 % (0-6); LYMPHOCYTES ABSOLUTE MAN 1.21 K/mm3 (0.84-5.20); LYMPHOCYTES PERCENT MAN 17 % (21-46); METAMYELOCYTE ABSOLUTE MAN 0.07 K/mm3 (0.00-0.00); METAMYELOCYTE PERCENT MAN 1 % (0-0); MONOCYTES ABSOLUTE MAN 0.71 K/mm3 (0.16-1.47); MONOCYTES PERCENT MAN 10 % (4-13); NEUTROPHILS ABSOLUTE MAN 5.12 K/mm3 (1.96-9.15); SEG NEUTROPHILS PERCENT MAN 72 % (41-73); TOTAL CELLS COUNTED 100
[2023-08-14 07:29] VITALS: BP 110/82
[2023-08-14] MEDS ORDERED: CeFAZolin Sodium 1,000 MG in NS 50 ML IV SCH (08:00)
[2023-08-14] MEDS ORDERED: ESTROGENS CONJUGATED 0.625 MG PO SCH (09:00)
[2023-08-14] MEDS ORDERED: Apixaban 5 MG Tab PO SCH (09:00)
[2023-08-14] MEDS ORDERED: Levothyroxine Sodium 0.05 MG Tab PO SCH (09:00)
[2023-08-14] MEDS ORDERED: Potassium Chloride 10 Meq Tablet SA PO SCH (09:00)
[2023-08-14] MEDS ORDERED: Torsemide 20 MG TAB PO SCH (09:00)
[2023-08-14] MEDS ORDERED: Enoxaparin 30 MG/0.3 ML SYR SC SCH (09:00)
[2023-08-14] MEDS ORDERED: Metoprolol Succinate 50 MG TABCR PO SCH (09:00)
--- NOTE | 2023-08-14 14:33 | NUR ---
SHIFT SUMMARY PT SLEEPING AT START OF SHIFT. ADMITTED FROM ER AFTER MN FOR A-FIB W/RVR. PER REPORT, ZOEY PLACED IN ER D/T RETENSION; PT NORMALLY STAIGHT CATHS FOR PAST 10 YEARS. PT VERY THIN, FRAIL, AND ANOREXIC. DR JOLLEY IN TO SEE PT THIS AM. GRAND DAUGHTER SUZI, CALLED TO GET UPDATE ON PT, ALSO REPORTING THAT SHE WAS POA AND HAD PT'S ADVANCED DIRECTIVE. PT TO BE DNR, PER POA. DR JOLLEY NOTIFIED; ORDERS PLACED. PT TO D/C TO [facility] AT D/C SHE IS TOO WEAK AND UNABLE TO CARE FOR HERSELF AT THIS TIME. PROCTOLOGIST UPDATED. PT ABLE TO TAKE MEDS WHOLE IN APPLESAUCE; TOLERATING WELL. REPORTS SWALLOWING DIFFICULTY W/O APPLESAUCE. PER SHIFT REPORT, SHIVANI HURT COVERING BLISTERS; SEE PICTURES ON CHART. NO C/O PAIN. THERAPY IN TO SEE PT EARLIER TODAY. PT'S SISTER ALSO TO TO VISIT FOR A WHILE. DENIES FURTHER NEEDS AT THIS TIME. CALL LT IN REACH.
[2023-08-14 19:18] VITALS: BP 100/55
[2023-08-14] MEDS ORDERED: Mirtazapine 15 MG SoluTab PO SCH (21:00)
[2023-08-15 04:57] VITALS: BP 116/74
[2023-08-15 05:34] LABS: BASOPHILS ABSOLUTE AUTO 0.03 K/mm3 (0.00-0.23); BASOPHILS PERCENT AUTO 0 % (0-2); EOSINOPHILS ABSOLUTE AUTO 0.03 K/mm3 (0.00-0.68); EOSINOPHILS PERCENT AUTO 0 % (0-6); Hematocrit 36.6 % (33.0-51.0); Hemoglobin 11.6 g/dL (11.5-16.0); IMMATURE GRAN ABSOLUTE AUTO 0.03 K/mm3 (0.00-0.10); IMMATURE GRAN PERCENT AUTO 0 % (0-1); LYMPHOCYTES ABSOLUTE AUTO 1.71 K/mm3 (0.84-5.20); LYMPHOCYTES PERCENT AUTO 23 % (21-46); MONOCYTES ABSOLUTE AUTO 0.96 K/mm3 (0.16-1.47); MONOCYTES PERCENT AUTO 13 % (4-13); Mean Corpuscular HGB 28.1 pg (26.0-34.0); Mean Corpuscular HGB Conc 31.7 g/dL (31.5-36.5); Mean Corpuscular Volume 89 fL (80-100); Mean Platelet Volume 10.5 fL (9.1-12.4); NEUTROPHILS ABSOLUTE AUTO 4.85 K/mm3 (1.96-9.15); NEUTROPHILS PERCENT AUTO 64 % (41-73); Platelet Count 322 K/mm3 (150-400); RDW Coefficient Variation 24.8 % (11.7-14.2); RDW Standard Deviation 79.7 fL (35.1-46.3); Red Blood Cell Count 4.13 M/mm3 (3.80-5.20); White Blood Cell Count 7.61 K/mm3 (4.00-11.30)
[2023-08-15 06:13] LABS: Albumin, Blood 2.1 g/dL (3.4-5.0); Albumin/Globulin Ratio 0.5 (0.8-1.8); Bilirubin, Total 0.5 mg/dL (0.1-1.0); Bun/Creatinine Ratio 26.7 (12.0-20.0); Calcium, Blood 8.9 mg/dL (8.5-10.1); Creatinine, Blood 1.16 mg/dL (0.40-1.00); Globulin, Blood 4.4 g/dL (2.2-4.0); Potassium, Blood 3.8 mmol/L (3.5-5.5); Total Protein, Blood 6.5 g/dL (6.4-8.2)
--- NOTE | 2023-08-15 06:28 | NUR ---
SHIFT SUMMARY PT IS A&OX4, FORGETFUL AT TIMES. PT IS VERY ANXIOUS, RESTLESS, AND ALSO TEARFUL D/T HER BEING VERY ILL. SHE IS PLEASANT AND APPRECIATIVE OF CARES. VSS ON RA. PER TELEMETRY PT IN A-FIB, HR IN THE 95-120'S, OCCASIONALLY UP TO 150'S. C/O PAIN IN HER BACK AND RLE. PLACED A MEPLEX ON LOWER SPINE OVER BONY PROMINENCES. ALSO PLACED AN EGG CRATE OVERLAY ON MATTRESS. MEDICATED WITH PRN 650 MG PO TYLENOL. TRANSFERED PT TO CHAIR X1 ASSIST. DRESSING TO RLE, C/D/I. GREER CATHETER DRAINING LARGE AMOUNTS OF CLEAR, LIGHT YELLOW URINE. NO BM THIS SHIFT. REPOSITIONED FREQUENTLY. BED IN LOWEST POSITION, CALL LIGHT WITHIN REACH. BED ALARM SET FOR PT'S SAFETY.
[2023-08-15 07:52] VITALS: BP 112/77
--- NOTE | 2023-08-15 15:53 | NUR ---
SUMMARY- PT AAOX4 AND X1 ASSIST THIS SHIFT. PT HAD MINIMAL APPETITE, BUT DID EAT AT EACH MEAL AND SNACKED TODAY. RIGHT LOWER LEG DRESSING PLACED THIS SHIFT TODAY. PT UP TO CHAIR THIS SHIFT.
[2023-08-15 16:09] VITALS: BP 112/66
[2023-08-15] MEDS ORDERED: FOLIC ACID0.4 MG PO (16:55)
[2023-08-15] MEDS ORDERED: CENTRUM SILVER1 EAC2 PO (17:01)
[2023-08-15 20:04] VITALS: BP 100/71
[2023-08-16 05:58] LABS: BASOPHILS ABSOLUTE AUTO 0.04 K/mm3 (0.00-0.23); BASOPHILS PERCENT AUTO 1 % (0-2); EOSINOPHILS ABSOLUTE AUTO 0.04 K/mm3 (0.00-0.68); EOSINOPHILS PERCENT AUTO 1 % (0-6); Hematocrit 36.7 % (33.0-51.0); Hemoglobin 11.7 g/dL (11.5-16.0); IMMATURE GRAN ABSOLUTE AUTO 0.02 K/mm3 (0.00-0.10); IMMATURE GRAN PERCENT AUTO 0 % (0-1); LYMPHOCYTES ABSOLUTE AUTO 1.56 K/mm3 (0.84-5.20); LYMPHOCYTES PERCENT AUTO 23 % (21-46); MONOCYTES PERCENT AUTO 15 % (4-13); Mean Corpuscular HGB 28.1 pg (26.0-34.0); Mean Corpuscular HGB Conc 31.9 g/dL (31.5-36.5); Mean Corpuscular Volume 88 fL (80-100); NEUTROPHILS ABSOLUTE AUTO 4.04 K/mm3 (1.96-9.15); NEUTROPHILS PERCENT AUTO 60 % (41-73); Platelet Count 321 K/mm3 (150-400); RDW Coefficient Variation 24.4 % (11.7-14.2); RDW Standard Deviation 77.3 fL (35.1-46.3); Red Blood Cell Count 4.16 M/mm3 (3.80-5.20)
[2023-08-16 06:22] VITALS: BP 104/67
--- NOTE | 2023-08-16 06:27 | NUR ---
SHIFT SUMMARY PER TELE, PT HAD 0.06 SEC OF VTACH THIS SHIFT. PT ASYMPTOMATIC AT TIME OF NOTIFICATION TO THIS NURSE. PT MEDICATED FOR PAIN X1. NO OTHER ACUTE CHANGES. CALL LIGHT WITHIN REACH AND PT ABLE TO MAKE NEEDS KNOWN.
[2023-08-16 06:35] LABS: Albumin, Blood 2.1 g/dL (3.4-5.0); Albumin/Globulin Ratio 0.5 (0.8-1.8); Bilirubin, Total 0.4 mg/dL (0.1-1.0); Bun/Creatinine Ratio 30.2 (12.0-20.0); Calcium, Blood 8.9 mg/dL (8.5-10.1); Creatinine, Blood 1.06 mg/dL (0.40-1.00); Globulin, Blood 4.3 g/dL (2.2-4.0); Potassium, Blood 3.6 mmol/L (3.5-5.5); Total Protein, Blood 6.4 g/dL (6.4-8.2)
[2023-08-16 07:34] VITALS: BP 94/59
[2023-08-16 08:17] VITALS: BP 107/66
[2023-08-16 15:05] VITALS: BP 97/55
--- NOTE | 2023-08-16 18:37 | NUR ---
SHIFT SUMMARY DRESSING TO RLE CHANGED AND XEROFOAM WITH NONADHERENT DRESSING WRAPPED WITH KERLEX AND GLORIA WRAP APPLIED. PT UP TO BATHROOM WITH 1 PERSON ASSIST USING FWW. PLAN FOR SNF TOMORROW. STATES SHE IS ATTEMPTING TO EAT MUCH SHE CAN FROM HER MEALS IN ATTEMPT TO GAIN WEIGHT. HEART RATE IN 110'S MOST OF THE DAY.
[2023-08-16 20:16] VITALS: BP 95/53
--- NOTE | 2023-08-17 03:34 | NUR ---
SHIFT SUMMARY 88 YR F ADMITTED ON 08/14/23. DNR. NO ACUTE CHANGES THIS SHIFT. PT WAS IN GOOD SPIRITS, SMILING AND CHATTING THIS SHIFT. SHE STATED THAT SHE WAS FEELING MUCH BETTER AND WAS LOOKING FORWARD TO SNF PLACEMENT TOMORROW. SHE APPEARS TO HAVE RESTED COMFORTABLY FOR MOST OF THIS SHIFT AND HAS HAD NO C/O PAIN OR DISCOMFORT. BED IN LOW POSITION AND CALL LIGHT IN REACH.
[2023-08-17 04:43] VITALS: BP 113/75
[2023-08-17 05:51] LABS: BASOPHILS ABSOLUTE AUTO 0.04 K/mm3 (0.00-0.23); BASOPHILS PERCENT AUTO 1 % (0-2); EOSINOPHILS ABSOLUTE AUTO 0.05 K/mm3 (0.00-0.68); EOSINOPHILS PERCENT AUTO 1 % (0-6); Hematocrit 38.5 % (33.0-51.0); Hemoglobin 12.1 g/dL (11.5-16.0); IMMATURE GRAN ABSOLUTE AUTO 0.03 K/mm3 (0.00-0.10); IMMATURE GRAN PERCENT AUTO 0 % (0-1); LYMPHOCYTES ABSOLUTE AUTO 1.93 K/mm3 (0.84-5.20); LYMPHOCYTES PERCENT AUTO 25 % (21-46); MONOCYTES ABSOLUTE AUTO 1.08 K/mm3 (0.16-1.47); MONOCYTES PERCENT AUTO 14 % (4-13); Mean Corpuscular HGB 27.8 pg (26.0-34.0); Mean Corpuscular HGB Conc 31.4 g/dL (31.5-36.5); Mean Corpuscular Volume 89 fL (80-100); Mean Platelet Volume 10.4 fL (9.1-12.4); NEUTROPHILS ABSOLUTE AUTO 4.55 K/mm3 (1.96-9.15); NEUTROPHILS PERCENT AUTO 59 % (41-73); Platelet Count 349 K/mm3 (150-400); RDW Coefficient Variation 24.2 % (11.7-14.2); RDW Standard Deviation 77.9 fL (35.1-46.3); Red Blood Cell Count 4.35 M/mm3 (3.80-5.20); White Blood Cell Count 7.68 K/mm3 (4.00-11.30)
[2023-08-17 07:07] LABS: Albumin, Blood 2.2 g/dL (3.4-5.0); Albumin/Globulin Ratio 0.5 (0.8-1.8); Bilirubin, Total 0.5 mg/dL (0.1-1.0); Bun/Creatinine Ratio 30.7 (12.0-20.0); Calcium, Blood 8.9 mg/dL (8.5-10.1); Creatinine, Blood 1.01 mg/dL (0.40-1.00); Globulin, Blood 4.5 g/dL (2.2-4.0); Potassium, Blood 3.7 mmol/L (3.5-5.5); Total Protein, Blood 6.7 g/dL (6.4-8.2)
[2023-08-17 07:24] VITALS: BP 107/72
[2023-08-17] MEDS ORDERED: MIRT15 PO (11:24)
[2023-08-17 12:01] LABS: SARS-Cov-2 (COVID-19) PCR, MMC NEGATIVE (NEGATIVE)
--- NOTE | 2023-08-17 13:30 | NUR ---
SHIFT SUMMARY AND DISCHARGE TO REHAB PATIENT ALERT AND INTERACTIVE. PATIENT UP TO BR WITH MINIMAL STAND BY ASSIST AND USE OF WALKER. PATIENT STATES SHE HAS PAIN IN L HIP AND LOW BACK AT TIMES. PATIENT REQUESTED TYLENOL AT BREAKFAST. PATIENT REPORTS TO HAVE ANXIETY AND SELF IMAGE ISSUES. WOUND ON L LEG REDRESSED BY DR. PABON CHANGED DRESSING OVER L LEG. PATIENT NEEDING POSSITIVE REINFORCEMENT RELATED TO EATING. PATIENT TRANSFERED TO [facility]. BELONGINGS SENT WITH PATIENT. REPORT CALLED TO [facility], PATIENT TRANSPORTED BY MEDICAL TRANSPORT TO REHAB.
== END 2023-08-17 13:19 | DRG 308 ==
LOC: ER 19:08 → MEDS 19:09 → ENPENDDIS 08-17 11:16 → MEDS 08-17 13:19
PROVIDERS: Emergency Medicine; Family Medicine; ADMIT Internal Medicine
PROC: 0HBKXZZ Excision of Right Lower Leg Skin, External Approach (ICD-10-PCS; principal; 2023-08-13)
DX: I48.91 Unspecified atrial fibrillation (principal); E43 Unspecified severe protein-calorie malnutrition; F50.00 Anorexia nervosa, unspecified; I50.22 Chronic systolic (congestive) heart failure; Z68.1 Body mass index [BMI] 19.9 or less, adult; L03.115 Cellulitis of right lower limb; L97.919 Non-pressure chronic ulcer of unspecified part of right lower leg with unspecified severity; R62.7 Adult failure to thrive; Z66 Do not resuscitate; E86.0 Dehydration; I73.9 Peripheral vascular disease, unspecified; K21.9 Gastro-esophageal reflux disease without esophagitis; I11.0 Hypertensive heart disease with heart failure; I87.8 Other specified disorders of veins; E03.9 Hypothyroidism, unspecified; R53.81 Other malaise; Z79.01 Long term (current) use of anticoagulants; Z91.410 Personal history of adult physical and sexual abuse; Z79.890 Hormone replacement therapy; Z79.899 Other long term (current) drug therapy
CPT/HCPCS: 36415; 51702; 71046; 80053; 81001; 83735; 83880; 84439; 84443; 85025; 85610; 93005; 93010; 94760; 96365; 96375; 97110; 97116; 97129; 97130; 97161; 97165; 97530; 97535; 99285-25; A9270; G0378; J0690; J2060; J2405; J7030; U0002

== ENCOUNTER 2023-11-01 14:39 | Inpatient (IN) | payer MEDICARE, OTHER ==
[~2023-11-01] VITALS: Ht 165.1 cm; Wt 37.7 kg
[~2023-11-01 14:39] MED LIST changes: +Acetaminophen325 M1 PO; +B-1100 M1 PO; +CENTRUM SILVER1 EAC2 PO; +CEPH500 PO; +CIPRO250 MG/5 M PO; +ELIQUIS2.5 MG PO; +ENSURE PO; +FOLIC ACID0.4 MG PO; +LOSA25 PO; +MIRT15 PO; +TORSE20 PO
[2023-11-01 15:21] LABS: Source, Urine Straight Cath
[2023-11-01 15:26] LABS: Appearance, Urine Hazy (Clear); Bilirubin, Urine Neg (Neg); Blood, Urine 1+ (Neg); Color, Urine Yellow (P-Yellow); Glucose Qualitative, Urine Neg (Neg); Ketones, Urine Neg (Neg); Leukocyte Esterase, Urine 3+ (Neg); Nitrite, Urine Neg (Neg); Protein, Urine 2+ (Neg); Specific Gravity, Urine 1.015 (1.003-1.022); Urobilinogen, Urine NORM (Normal)
[2023-11-01 15:42] LABS: BASOPHILS ABSOLUTE AUTO 0.01 K/mm3 (0.00-0.23); BASOPHILS PERCENT AUTO 0 % (0-2); EOSINOPHILS PERCENT AUTO 0 % (0-6); Hemoglobin 13.8 g/dL (11.5-16.0); IMMATURE GRAN ABSOLUTE AUTO 0.02 K/mm3 (0.00-0.10); IMMATURE GRAN PERCENT AUTO 0 % (0-1); LYMPHOCYTES ABSOLUTE AUTO 0.84 K/mm3 (0.84-5.20); LYMPHOCYTES PERCENT AUTO 12 % (21-46); MONOCYTES ABSOLUTE AUTO 0.33 K/mm3 (0.16-1.47); MONOCYTES PERCENT AUTO 5 % (4-13); Mean Corpuscular HGB 30.3 pg (26.0-34.0); Mean Corpuscular HGB Conc 32.1 g/dL (31.5-36.5); Mean Corpuscular Volume 95 fL (80-100); Mean Platelet Volume 11.6 fL (9.1-12.4); NEUTROPHILS PERCENT AUTO 83 % (41-73); NRBC ABSOLUTE 0.04 K/mm3 (0.00-0.02); NRBC Auto 0.6 /100 WBC (0.0-0.2); Platelet Count 260 K/mm3 (150-400); RDW Coefficient Variation 16.5 % (11.7-14.2); RDW Standard Deviation 56.4 fL (35.1-46.3); Red Blood Cell Count 4.55 M/mm3 (3.80-5.20)
[2023-11-01 15:47] LABS: Bacteria Many /hpf; Hyaline Casts 0-2 /lpf (0-2); Squamous Epithelial Cells Few /hpf (Few)
[2023-11-01 16:03] LABS: Albumin, Blood 2.5 g/dL (3.4-5.0); Albumin/Globulin Ratio 0.6 (0.8-1.8); Bilirubin, Total 1.4 mg/dL (0.1-1.0); Bun/Creatinine Ratio 36.2 (12.0-20.0); Calcium, Blood 9.1 mg/dL (8.5-10.1); Creatinine, Blood 2.21 mg/dL (0.40-1.00); Globulin, Blood 4.2 g/dL (2.2-4.0); Potassium, Blood 4.9 mmol/L (3.5-5.5); Total Protein, Blood 6.7 g/dL (6.4-8.2)
[2023-11-01] MEDS ORDERED: NS 1,000 ML IV SCH ×2 (16:15→21:20)
[2023-11-01] MEDS ORDERED: CefTRIAXone Sodium 1,000 MG in NS 50 ML IV ONE (16:15)
[2023-11-01] MEDS ORDERED: Acetaminophen 325 MG TABLET PO PRN (17:30)
[2023-11-01] MEDS ORDERED: Ciprofloxacin 400MG/D5 200ML 200 ML IV SCH (18:00)
--- NOTE | 2023-11-01 18:46 | NUR ---
184- RECEIVED REPORT FROM WILLIAM SULLIVAN NURSE.
[2023-11-01 20:32] VITALS: BP 109/79
[2023-11-01] MEDS ORDERED: Mirtazapine 15 MG Tab PO SCH (21:00)
[2023-11-01] MEDS ORDERED: Apixaban 5 MG Tab PO SCH (21:00)
[2023-11-01] MEDS ORDERED: Metoprolol Succinate 25 MG TABCR PO SCH (21:00)
[2023-11-01] MEDS ORDERED: ENSURE PLUS237 ML PO (21:27)
[2023-11-01] MEDS ORDERED: POTCIT10 PO (21:32)
[2023-11-01] MEDS ORDERED: LOPE2C PO (21:35)
[2023-11-01] MEDS ORDERED: ALMACONE SUSPE355 ML PO (21:35)
[2023-11-01] MEDS ORDERED: MIRALAX1714 PO (21:36)
[2023-11-01] MEDS ORDERED: SENN187 PO (21:37)
[2023-11-01] MEDS ORDERED: DESITIN DAILY136 GM TOP (21:38)
[2023-11-02 02:33] VITALS: BP 98/73
[2023-11-02 04:54] LABS: BASOPHILS ABSOLUTE AUTO 0.01 K/mm3 (0.00-0.23); BASOPHILS PERCENT AUTO 0 % (0-2); EOSINOPHILS ABSOLUTE AUTO 0.01 K/mm3 (0.00-0.68); EOSINOPHILS PERCENT AUTO 0 % (0-6); Hematocrit 44.1 % (33.0-51.0); Hemoglobin 13.2 g/dL (11.5-16.0); IMMATURE GRAN ABSOLUTE AUTO 0.02 K/mm3 (0.00-0.10); IMMATURE GRAN PERCENT AUTO 0 % (0-1); LYMPHOCYTES ABSOLUTE AUTO 1.62 K/mm3 (0.84-5.20); LYMPHOCYTES PERCENT AUTO 22 % (21-46); MONOCYTES ABSOLUTE AUTO 0.41 K/mm3 (0.16-1.47); MONOCYTES PERCENT AUTO 6 % (4-13); Mean Corpuscular HGB 30.2 pg (26.0-34.0); Mean Corpuscular HGB Conc 29.9 g/dL (31.5-36.5); NEUTROPHILS ABSOLUTE AUTO 5.37 K/mm3 (1.96-9.15); NEUTROPHILS PERCENT AUTO 72 % (41-73); Platelet Count 235 K/mm3 (150-400); RDW Standard Deviation 62.7 fL (35.1-46.3); Red Blood Cell Count 4.37 M/mm3 (3.80-5.20); White Blood Cell Count 7.44 K/mm3 (4.00-11.30)
[2023-11-02 05:06] LABS: Mean Corpuscular Volume 101 fL (80-100)
[2023-11-02 05:22] LABS: Bun/Creatinine Ratio 38.3 (12.0-20.0); Calcium, Blood 8.6 mg/dL (8.5-10.1); Creatinine, Blood 1.96 mg/dL (0.40-1.00); Potassium, Blood 4.4 mmol/L (3.5-5.5)
[2023-11-02] MEDS ORDERED: Levothyroxine Sodium 0.05 MG Tab PO SCH (06:00)
--- NOTE | 2023-11-02 06:09 | NUR ---
SHIFT SUMMARY: PATIENT ARRIVED ON UNIT AT SHIFT CHANGE. PATIENT WEIGHED 80 LBS, WITH CLEAR CACHEXIA SYMPTOMS. THE PATIENT HAD SKIN TEARS, BRUISES, ULCERS, AND SCABS SCATTERED THROUGHOUT HER BODY, IN ADDITION TO WHITE PLAQUE PATCHES IN HER MOUTH. PATIENT'S ORIENTATION VARIED THROUGHOUT THE SHIFT WITH CONFUSION. PATIENT REPORTED STRAIGHT CATHING AT HER RESIDENCE AT THE [facility], BUT WOULD URINATE SPONTANEOUSLY AND WITH CONTINENCE ON THE BEDSIDE COMMODE. PATIENT SEEMED TO BE IN DISCOMFORT AT TIMES, BUT WOULD NOT REQUEST PAIN MEDICATION. THE GRANDDAUGHTER, SUZI MORENO, IS EAGER TO TALK TO THE HOSPITALIST ABOUT THE PLAN OF CARE.
[2023-11-02 07:15] VITALS: BP 95/60
[2023-11-02] MEDS ORDERED: Folic Acid 400 MCG TAB PO SCH (09:00)
[2023-11-02] MEDS ORDERED: Thiamine HCl 100 MG Tab PO SCH (09:00)
[2023-11-02] MEDS ORDERED: Multivitamins/Minerals 1 Tab PO SCH (09:00)
[2023-11-02] MEDS ORDERED: ESTROGENS CONJUGATED 0.625 MG PO SCH (09:00)
[2023-11-02 11:39] LABS: Creatinine, Urine Random 17.6 mg/dL (27.00-270.00)
[2023-11-02] MEDS ORDERED: CefTRIAXone Sodium 1,000 MG in NS 100 ML IV SCH (12:00)
[2023-11-02] MEDS ORDERED: NS 250 ML IV PRN (15:15)
[2023-11-02 15:44] VITALS: BP 83/56
--- NOTE | 2023-11-02 18:28 | NUR ---
SUMMARY- AAOX3. X1 ASSIST TO THE BSC. GREER PLACED THIS AM AND PATENT/DRAINING WELL. PT REPOSITIONED Q 2 THIS SHIFT. PT HAD MINIMAL APPETITE. NO ACUTE EVENTS THIS SHIFT.
[2023-11-02 19:46] VITALS: BP 80/48
[2023-11-02] MEDS ORDERED: Lactobacil 2-S.Thermo-Bifido 1 1 Cap PO SCH (21:00)
[2023-11-03 03:09] VITALS: BP 83/51
[2023-11-03 05:16] LABS: BASOPHILS PERCENT AUTO 0 % (0-2); EOSINOPHILS ABSOLUTE AUTO 0.02 K/mm3 (0.00-0.68); EOSINOPHILS PERCENT AUTO 0 % (0-6); Hematocrit 38.4 % (33.0-51.0); Hemoglobin 11.7 g/dL (11.5-16.0); IMMATURE GRAN ABSOLUTE AUTO 0.02 K/mm3 (0.00-0.10); IMMATURE GRAN PERCENT AUTO 0 % (0-1); LYMPHOCYTES ABSOLUTE AUTO 1.13 K/mm3 (0.84-5.20); LYMPHOCYTES PERCENT AUTO 20 % (21-46); MONOCYTES ABSOLUTE AUTO 0.42 K/mm3 (0.16-1.47); MONOCYTES PERCENT AUTO 7 % (4-13); Mean Corpuscular HGB 29.6 pg (26.0-34.0); Mean Corpuscular HGB Conc 30.5 g/dL (31.5-36.5); Mean Corpuscular Volume 97 fL (80-100); Mean Platelet Volume 11.8 fL (9.1-12.4); NEUTROPHILS ABSOLUTE AUTO 4.16 K/mm3 (1.96-9.15); NEUTROPHILS PERCENT AUTO 72 % (41-73); Platelet Count 212 K/mm3 (150-400); RDW Coefficient Variation 16.3 % (11.7-14.2); RDW Standard Deviation 58.6 fL (35.1-46.3); Red Blood Cell Count 3.95 M/mm3 (3.80-5.20); White Blood Cell Count 5.75 K/mm3 (4.00-11.30)
--- NOTE | 2023-11-03 05:52 | NUR ---
SHIFT SUMMARY: PATIENT FULLY ORIENTED, EASILY EXHAUSTED WITH EFFORT, COOPERATIVE WITH CARE. PATIENT UNABLE TO SLEEP AT NIGHT, ASKED FOR MULTIPLE REARRANGING IN BED/TEMP CHANGES/EYE MASK. TAKES MEDS HALVED IN APPLESAUCE, DIFFICULT FOR PATIENT TO RETAIN WATER IN MOUTH. GREER CATHETER IN PLACE. CAN STAND AND PIVOT.
[2023-11-03 05:54] LABS: Albumin, Blood 2.1 g/dL (3.4-5.0); Albumin/Globulin Ratio 0.5 (0.8-1.8); Bilirubin, Total 0.8 mg/dL (0.1-1.0); Bun/Creatinine Ratio 38.1 (12.0-20.0); Calcium, Blood 8.2 mg/dL (8.5-10.1); Creatinine, Blood 1.81 mg/dL (0.40-1.00); Globulin, Blood 3.9 g/dL (2.2-4.0); Magnesium, Blood 1.4 mg/dL (1.6-2.4); Phosphorus, Blood 3.4 mg/dL (2.5-4.9); Potassium, Blood 3.8 mmol/L (3.5-5.5)
[2023-11-03 07:13] VITALS: BP 83/56
[2023-11-03] MEDS ORDERED: Mag Sulfate 1 GM/D5% 100ML 100 ML IV STA (07:19)
[2023-11-03] MEDS ORDERED: Vancomycin HCL 750 MG in NS 250 ML IV ONE (12:10)
[2023-11-03 14:55] VITALS: BP 89/60
--- NOTE | 2023-11-03 16:20 | NUR ---
SHIFT SUMMARY NO ACUTE CHANGES TODAY. PT WORKED WITH PHYSICAL THERAPY AND WAS ABLE TO SIT IN THE CHAIR. 1 SBA USING FWW. TYLENOL FOR CHRONIC BACK PAIN. IV ABX PER ORDERS. ZOEY PLEITEZ PATENT. ENCOURAGING PO INTAKE. PT USES CALL LIGHT APPROPRIATELY.
[2023-11-03 20:17] VITALS: BP 91/53
[2023-11-04 03:11] VITALS: BP 95/64
--- NOTE | 2023-11-04 04:24 | NUR ---
SHIFT SUMMARY: Pt is admitted for acute renal failure and is a full code. Is alert and able to make needs known. ADLs have mostly 1p. Some low level pain was reported and was treated with PRN APAP. folly intact and draining clear yellow urine.
[2023-11-04 05:30] LABS: BASOPHILS PERCENT AUTO 0 % (0-2); EOSINOPHILS ABSOLUTE AUTO 0.02 K/mm3 (0.00-0.68); EOSINOPHILS PERCENT AUTO 0 % (0-6); Hematocrit 38.8 % (33.0-51.0); Hemoglobin 11.9 g/dL (11.5-16.0); IMMATURE GRAN ABSOLUTE AUTO 0.02 K/mm3 (0.00-0.10); IMMATURE GRAN PERCENT AUTO 0 % (0-1); LYMPHOCYTES ABSOLUTE AUTO 1.18 K/mm3 (0.84-5.20); LYMPHOCYTES PERCENT AUTO 21 % (21-46); MONOCYTES PERCENT AUTO 7 % (4-13); Mean Corpuscular HGB 29.7 pg (26.0-34.0); Mean Corpuscular HGB Conc 30.7 g/dL (31.5-36.5); Mean Corpuscular Volume 97 fL (80-100); Mean Platelet Volume 11.9 fL (9.1-12.4); NEUTROPHILS ABSOLUTE AUTO 4.01 K/mm3 (1.96-9.15); NEUTROPHILS PERCENT AUTO 71 % (41-73); Platelet Count 195 K/mm3 (150-400); RDW Coefficient Variation 16.5 % (11.7-14.2); Red Blood Cell Count 4.01 M/mm3 (3.80-5.20); White Blood Cell Count 5.63 K/mm3 (4.00-11.30)
[2023-11-04 06:07] LABS: Alanine Aminotransfer (ALT/SGP 28 U/L (12-78); Albumin, Blood 2.2 g/dL (3.4-5.0); Albumin/Globulin Ratio 0.5 (0.8-1.8); Alk Phos 132 U/L (50-136); Anion Gap 8 mmol/L (3-11); Aspartate Aminotrans (AST/SGOT 41 U/L (12-37); Bilirubin, Total 0.8 mg/dL (0.1-1.0); Blood Urea Nitrogen 62 mg/dL (8-24); Bun/Creatinine Ratio 38.8 (12.0-20.0); CO2, Blood 34 mmol/L (21-32); Calcium, Blood 8.6 mg/dL (8.5-10.1); Chloride, Blood 101 mmol/L (98-108); Globulin, Blood 4.2 g/dL (2.2-4.0); Glomerular Filtration Rate 31 (60-); Glucose, Blood 94 mg/dL (70-99); Magnesium, Blood 2.4 mg/dL (1.6-2.4); Phosphorus, Blood 2.3 mg/dL (2.5-4.9); Potassium, Blood 3.9 mmol/L (3.5-5.5); Sodium, Blood 139 mmol/L (136-145); Total Protein, Blood 6.4 g/dL (6.4-8.2); Vancomycin, Random 9.6 ug/mL
[2023-11-04 07:31] VITALS: BP 96/62
[2023-11-04] MEDS ORDERED: NS 1,000 ML IV SCH (07:50)
[2023-11-04] MEDS ORDERED: Vancomycin HCL 500 MG in NS 250 ML IV ONE (08:00)
[2023-11-04] MEDS ORDERED: Polyethylene Glycol 3350 17 gm PO PRN (12:00)
[2023-11-04] MEDS ORDERED: Polyethylene Glycol 3350 17 gm PO ONE (12:00)
[2023-11-04 13:03] VITALS: BP 92/60
[2023-11-04] MEDS ORDERED: Sodium Phosphate 10 MM in Dextrose 5% 250 ML IV STA (13:08)
[2023-11-04] MEDS ORDERED: Thiamine HCl 100 MG Tab PO SCH ×2 (14:00→21:00)
[2023-11-04 15:33] VITALS: BP 107/70
--- NOTE | 2023-11-04 17:56 | NUR ---
SHIFT SUMMARY PATIENT ALERT AND INTERACTIVE. PATIENT VERY PARTICULAR WITH HOW CARE IS PROVIDED. PATIENT EASILY IRRITABLE AND ANXIOUS IF THINGS NOT DONE EXACTLY THE WAY SHE WOULD LIKE. PATIENT BANGING CALL LIGHT ON BED RAIL IF CALL LIGHT NOT ANSWERED IMMEDIATLY WHEN PUSHED. PATIENT CALLING OUT AT TIMES AND NOT USING CALL LIGHT. PATIENT UP TO CHAIR X2 AND WALKED TO BATHROOM X2 WITH MINIMAL ASSISTANCE. PATIENT VERBALIZING BACK AND HIP PAIN. EGG CRATE PLACED FOR COMFORT. NEW DRY DRESSINGS APPLIED TO BACK WOUNDS. PATIENT STATING THAT HER GOALS ARE TO RETURN TO HER HOME [place], BE ABLE TO SHOP AND BUY HER OWN GROCERIES. DISCUSSED ALF PLAN. PATIENT ADMITS TO ANXIETY AND GETTING SOB WHEN HAVING ANXIETY. PATIENT DOES NOT WANT TO WEAR OXYGEN OTHERWISE BECAUSE SHE DOES NOT LIKE HAVING IT ON HER FACE. PROVIDED EDUCATION RELATED TO OXYGEN NEED, FLUID INTAKE AND EATING. PATIENT CONTINUES TO EAT MINIMAL AMOUNTS OF FOOD AND ATTEMPTS TO MAKE IT LOOK LIKE SHE HAS EATEN HER DINNER. PATIENT NOT WANTING TO TAKE FULL DOSE OF MIRALAX AND REFUSED TO DRINK COMPLETE DOSE. NEW IV STARTED. PATIENT DEVELOPED A NOSE BLEED AT END OF SHIFT WHILE IN THE BATHROOM THAT QUICKLY RESOLVED WITHOUT INTERVENTION. ENCOURAGED PATIENT TO TRY TO DRINK MORE FLUIDS.
[2023-11-04 19:49] VITALS: BP 100/66
[2023-11-04] MEDS ORDERED: Arginine/Glutamine/Calcium Hmb 1 Packet PO SCH (21:00)
[2023-11-05 04:17] LABS: BASOPHILS ABSOLUTE AUTO 0.02 K/mm3 (0.00-0.23); BASOPHILS PERCENT AUTO 0 % (0-2); EOSINOPHILS ABSOLUTE AUTO 0.01 K/mm3 (0.00-0.68); EOSINOPHILS PERCENT AUTO 0 % (0-6); Hematocrit 41.4 % (33.0-51.0); Hemoglobin 12.6 g/dL (11.5-16.0); IMMATURE GRAN ABSOLUTE AUTO 0.01 K/mm3 (0.00-0.10); IMMATURE GRAN PERCENT AUTO 0 % (0-1); LYMPHOCYTES ABSOLUTE AUTO 1.37 K/mm3 (0.84-5.20); LYMPHOCYTES PERCENT AUTO 23 % (21-46); MONOCYTES PERCENT AUTO 10 % (4-13); Mean Corpuscular HGB 30.1 pg (26.0-34.0); Mean Corpuscular HGB Conc 30.4 g/dL (31.5-36.5); Mean Corpuscular Volume 99 fL (80-100); Mean Platelet Volume 11.6 fL (9.1-12.4); NEUTROPHILS ABSOLUTE AUTO 4.01 K/mm3 (1.96-9.15); NEUTROPHILS PERCENT AUTO 67 % (41-73); NRBC ABSOLUTE 0.02 K/mm3 (0.00-0.02); NRBC Auto 0.3 /100 WBC (0.0-0.2); Platelet Count 166 K/mm3 (150-400); RDW Coefficient Variation 16.4 % (11.7-14.2); RDW Standard Deviation 59.5 fL (35.1-46.3); Red Blood Cell Count 4.18 M/mm3 (3.80-5.20); White Blood Cell Count 6.02 K/mm3 (4.00-11.30)
[2023-11-05 04:37] LABS: Anion Gap 7 mmol/L (3-11); Blood Urea Nitrogen 53 mg/dL (8-24); Bun/Creatinine Ratio 43.8 (12.0-20.0); CO2, Blood 30 mmol/L (21-32); Calcium, Blood 8.3 mg/dL (8.5-10.1); Chloride, Blood 106 mmol/L (98-108); Creatinine, Blood 1.21 mg/dL (0.40-1.00); Glomerular Filtration Rate 43 (60-); Glucose, Blood 111 mg/dL (70-99); Phosphorus, Blood 2.7 mg/dL (2.5-4.9); Potassium, Blood 4.4 mmol/L (3.5-5.5); Sodium, Blood 139 mmol/L (136-145); Vancomycin, Random 13.2 ug/mL
[2023-11-05 04:50] VITALS: BP 102/72
--- NOTE | 2023-11-05 06:21 | NUR ---
SHIFT SUMMARY: PATIENT FULLY ORIENTED. ANXIETY ATTACKS THROUGH NIGHT. REQUIRED MULTIPLE ATTEMPTS TO MAKE COMFORTABLE; DID NOT SLEEP THROUGH NIGHT. PATIENT ASKED TO USE THE BEDSIDE COMMODE MULTIPLE TIMES, BUT DID NOT PRODUCE ANYTHING. ATTEMPTS TO DRINK WATER RESULT IN MINOR DRIBBLING FROM MOUTH; PILLS GIVEN CRUSHED OR HALVED IN APPLESAUCE. IV WENT BAD IN RIGHT AC - MULTIPLE ATTEMPTS BY TWO NURSES RESULTED IN A PIV IN LEFT AC. NORMAL SALINE CONTINUED AT 100ML/HR.
[2023-11-05] MEDS ORDERED: Vancomycin HCL 500 MG in NS 250 ML IV ONE (07:15)
[2023-11-05 07:16] VITALS: BP 102/73
[2023-11-05] MEDS ORDERED: Bisacodyl 10 MG Supp PR ONE (09:00)
[2023-11-05] MEDS ORDERED: Bisacodyl 10 MG Supp PR PRN (09:00)
[2023-11-05 15:45] VITALS: BP 104/67
[2023-11-05] MEDS ORDERED: JUVEN PACKET1 EAC3 PO (16:10)
[2023-11-05] MEDS ORDERED: Almacone Liqui355 ML PO (16:12)
[2023-11-05] MEDS ORDERED: SULTRIDS PO (16:18)
--- NOTE | 2023-11-05 16:28 | NUR ---
SHIFT SUMMARY PT IS ALERT AND INTERACTS WITH STAFF. PT NOTED TO BE VERY PARTICULAR IN HOW CARES ARE DONE. PT NOTED TO RELY ON STAFF MORE THIS SHIFT FOR ADLS. PT NOTED TO ONLY EAT A COUPLE OF BITES TODAY AND DRINK VERY LITTLE EVEN WITH ENCOURAGEMENT. PT NOTED TO HAVE A MEDIUM BM WITH SMALL AMOUT OF BLOOD NOTED D/T HEMROIDS PHYSICIAN NOTIFED WITH NO NEW ORDERS AT THIS TIME. PT WAS SUPPOSE TO [facility] BACK TO [facility] THIS [facility]IFT BUT THE [facility] STATED THAT THEY NEEDED TO REEVALUATE PT D/T PT BEING GONE FOR MORE THAN 3DAYS AND WOULD BE GOING BACK WITH A GREER CATH D/T RETENTION. DR RODRIGUES AND CASE MANAGEMENT MADE AWARE OF THIS. PLAN IS FOR PT TO DC ON TUESDAY WITH HOME HEALTH.
[2023-11-05 19:47] VITALS: BP 110/70
--- NOTE | 2023-11-05 22:33 | NUR ---
PT JESUS MORENO WHO IS PT MAYUR CALLED FOR UPDATE ON PT PLAN OF CARE. SHE WAS INFORMED THAT PT IS MEDICALLY STABLE FOR DISCHARGE, BUT THERE ARE DISCHARGE PLANNING ISSUES ESPECIALLY IN REGARDS TO RETURNING TO THE [facility] WHERE THE FACILITY DOES NOT WANT PT BACK AND HAVE A REEVALUATION SCHEDULED FOR BEGINNING OF THE WEEK. PT MAYUR WAS NOT AWARE OF THIS DEVELOPEMENT AND IS REQUESTING TO BE INVOLVED VIA PHONE DURING INSPECTOR WATCH TRAINSPANISH LINGUIST WITH PT. PT ALSO HAS [facility] SCHEDULED FOR TUESDAY. POA STATED THAT THEY ARE PAYING OUT OF POCKET AND CANNOT AFFORD 24/7 H/H CARE. PT HAS PALLIATIVE CARE CONSULT ORDERED BUT HAS NOT BEEN SEEN YET. POA IS REQUESTING PT BE PUT ON PALLIATIVE CARE, BUT NOT COMFORT CARE MEASURES. THEY ARE REQUESTING OXYGEN PRN, ANXIETY RX, AND PAIN MANAGEMENT.
[2023-11-06 02:31] VITALS: BP 122/64
--- NOTE | 2023-11-06 05:55 | NUR ---
SHIFT SUMMARY NOC PT A/O X 3-4. FORGETFUL AT TIMES, BUT COOPERATIVE WITH CARE. VSS. PT HAD C/O OF SOB, BUT SPO2 >92% WHEN CHECKED, O2 INCREASED TO 3L/NC FOR COMFORT AT NIGHT. GREER IN PLACE PATENT AND DRAINING YELLOW URINE TO GRAVITY. PT JESUS WHO IS MAYUR HUERTASSUZIBOB MORENO CALLED FOR UPDATE ON PLAN OF CARE GOING FORWARD. SHE STATED THAT SHE WANTS TO BE NOTIFIED AND PARTICIPATE VIA PHONE DUE TO C-19 FOR SCALLOP BINDER AND PALLIATIVE CARE MEETINGS TO BE CURRENT ON SITUATION. POA WANTS PT TO BE ON PALLIATIVE, BUT NOT COMFORT CARE WITH PRN OXYGEN, ANXIETY RX, AND PAIN MANAGEMENT FOR CHRONIC BACK PAIN IN PLACE, BEFORE DISCHARGE. PT HAS [facility] REEVALUATION TO SEE IF PT CAN RETURN TO FACILITY. PT PO INTAKE STILL VERY POOR AND PT IS EXTREMELY EMACIATED. VARIOUS WOUND DRESSING IN PLACE ARE C/D/I. INFUSION OF NS @ 100 ML/HR STILL GOING. 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 PT CURRENTLY RESTING WITH BED IN LOWEST POSITION, AND CALL LIGHT WITHIN REACH.
[2023-11-06 07:06] LABS: BASOPHILS ABSOLUTE AUTO 0.01 K/mm3 (0.00-0.23); BASOPHILS PERCENT AUTO 0 % (0-2); EOSINOPHILS PERCENT AUTO 0 % (0-6); Hematocrit 43.5 % (33.0-51.0); Hemoglobin 13.5 g/dL (11.5-16.0); IMMATURE GRAN ABSOLUTE AUTO 0.07 K/mm3 (0.00-0.10); IMMATURE GRAN PERCENT AUTO 1 % (0-1); LYMPHOCYTES ABSOLUTE AUTO 1.49 K/mm3 (0.84-5.20); LYMPHOCYTES PERCENT AUTO 24 % (21-46); MONOCYTES ABSOLUTE AUTO 0.69 K/mm3 (0.16-1.47); MONOCYTES PERCENT AUTO 11 % (4-13); Mean Corpuscular HGB 29.9 pg (26.0-34.0); Mean Corpuscular Volume 97 fL (80-100); NEUTROPHILS PERCENT AUTO 64 % (41-73); NRBC ABSOLUTE 0.03 K/mm3 (0.00-0.02); NRBC Auto 0.5 /100 WBC (0.0-0.2); Platelet Count 132 K/mm3 (150-400); RDW Coefficient Variation 16.6 % (11.7-14.2); RDW Standard Deviation 59.1 fL (35.1-46.3); Red Blood Cell Count 4.51 M/mm3 (3.80-5.20); White Blood Cell Count 6.26 K/mm3 (4.00-11.30)
[2023-11-06 07:22] LABS: Anion Gap 11 mmol/L (3-11); Blood Urea Nitrogen 52 mg/dL (8-24); Bun/Creatinine Ratio 44.4 (12.0-20.0); CO2, Blood 27 mmol/L (21-32); Calcium, Blood 8.8 mg/dL (8.5-10.1); Chloride, Blood 109 mmol/L (98-108); Creatinine, Blood 1.17 mg/dL (0.40-1.00); Glomerular Filtration Rate 45 (60-); Glucose, Blood 81 mg/dL (70-99); Sodium, Blood 142 mmol/L (136-145); Vancomycin, Random 15.2 ug/mL
[2023-11-06] MEDS ORDERED: Vancomycin HCL 500 MG in NS 250 ML IV ONE (07:35)
[2023-11-06] MEDS ORDERED: Trimethoprim/Sulfamethoxazole DS Tab PO SCH (13:00)
--- NOTE | 2023-11-06 15:00 | NUR ---
SHIFT SUMMARY PT REMAINS A&O X4. PT IS NOTED TO BE VERY PARTICULAR WITH HOW CARES ARE DONE AND HOW LONG SHE HAS TO WAIT. PT NOTED TO ONLY TAKE A COUPLE DRINKS OF HER MIRLAX THIS MORNING AND 1 SIP OF HER MARANDA AND STATED SHE COULDNT DRINK ANYMORE. PT ALSO NOTED TO NOT ANY BUT ONLY BITS AT MEALS THIS SHIFT BUT WOULD MOVE THE FOOD AROUND ON HER PLATE TO MAKE IT LOOK LIKE SHE ATE. PT NOTED TO C/O SOB PHYSICIAN NOTIFIED AND ORDERED CT RESULTS SHOWED THAT PT POSSIBLE HAD ASPIRATED DR RODRIGUES HAS ORDERED ST EVAL & TX ALONG WITH A SWOLLOW STUDY PT IS TO BE NPO IF SHE DOES NOT PASS. PT ALSO NOTED TO HAVE ISSUES WITH PERFUSION AND DIFFICULTY GETTING O2 SATS FINGERS TOES AND EAR LOBES ALL ATTEMPTED. DR RODRIGUES NOTIFIED WITH NO NEW ORDERS AT THIS TIME. PT GRAND DAUGHTER NOTIFED OF CHANGES BY PALLATIVE CARE.
[2023-11-06] MEDS ORDERED: Furosemide 10 MG / ML 2ML Vial IV ONE (15:25)
--- NOTE | 2023-11-06 16:37 | NUR ---
MET WITH BHAVIN TO DISCUSS GOALS OF CARE. SHE REPORTED THAT SHE IS FEELING SOMEWHAT BETTER. PROVIDED THERAPUTIC CONVERSATION ABOUT MAKEUP AND BAGS. SHE ENJOYED THIS CONVERSATION. WE DISCUSSED HOSPICE. SHE REPORTED THAT SHE REALLY DID NOT LIKE THE IDEA OF HOSPICE. WE DISCUSSED THAT HOSPICE WOULD PROVIDE EXTRA SUPPORT DURING THIS STAGE OF HER HEALTH AND SHE ALWAYS HAS FLEXABLILITY TO COME OFF SERVICES IF IT DOES NOT SUIT HER. SHE SAID THAT SHE WOULD THINK ABOUT IT. I DISCUSSED CODE STATUS WITH HER AND ASKED IF SHE HAS EVER FILLED OUT A POLST. SHE SAID THAT SHE HAS AND I ASKED IF I GOT A COPY IF SHE WOULD LIKE ME TO MAKE SURE THAT WE FOLLOWED WHAT SHE HAD PUT ON HER POLST. SHE AGREED TO THIS SHE WAS NOT SURE WHAT SHE PUT. I GOT A COPY FROM THE [facility] AND IT STATES DNR STATUS AND LIMITED INTERVENTIONS. SIGNED BY DR. ARIAS. CALLED DR. RODRIGUES AND LEFT MESSAGE.
[2023-11-06] MEDS ORDERED: LORazepam 0.5 MG Tab PO ONE (19:20)
[2023-11-06 19:34] VITALS: BP 126/64
[2023-11-07 06:17] VITALS: BP 122/62
--- NOTE | 2023-11-07 06:26 | NUR ---
SHIFT SUMMARY NOC PT A/O X 3-4. COOPERATIVE WITH CARE, BUT REQUIRES REDIRECTION. HR ELEVATED SCHEDULED METOPROLOL GIVEN. PT ON O2 3L/NC FOR INCREASED SOB FROM ASPIRATION PNA AND HAS ST EVALUATION AND SWALLOW STUDY ORDERED FOR TODAY. PT HAD C/O OF INCREASED ANXIETY AND SCHEDULED DOSE OF MIRTAZIPINE GIVEN ALONG WITH ONE TIME DOSE OF ATIVAN 0.5 MG PO TO ALSO HELP WITH SLEEP. PT HAS SLEPT FOR A GOOD PORTION OF SHIFT SINCE. PT HAS GREER IN PLACE FOR RETENTION. PT CODE STATUS WAS CHANGED TO DNR DURING DAY SHIFT YESTERDAY. PT HAS EXTREMELY BAD PERFUSION AND O2 SATS ARE VERY DIFFICULT TO OBTAIN. PT REFUSED TO ALLOW CATHETER CARE TO BE PERFORMED. PT HAS REEVALUATION WITH CURRENT RESIDENCE [facility] TODAY WELL [facility] FOR NEEDS UPON DISCHARGE. PT CURRENTLY RESTING WITH BED ALARM ON, BED IN LOWEST POSITION, AND CALL LIGHT WITHIN REACH.
--- NOTE | 2023-11-07 06:30 | NUR ---
SHIFT SUMMARY NOC PT A/O X 2-3. CONFUSED AND FORGETFUL AT TIMES, BUT REQUIRES REDIRECTION. HR ELEVATED SCHEDULED METOPROLOL GIVEN. PT ON O2 3L/NC FOR INCREASED SOB FROM ASPIRATION PNA AND HAS ST EVALUATION AND SWALLOW STUDY ORDERED FOR TODAY. PT HAD C/O OF INCREASED ANXIETY AND SCHEDULED DOSE OF MIRTAZIPINE GIVEN ALONG WITH ONE TIME DOSE OF ATIVAN 0.5 MG PO TO ALSO HELP WITH SLEEP. PT HAS SLEPT FOR A GOOD PORTION OF SHIFT SINCE. PT HAS GREER IN PLACE FOR RETENTION. PT CODE STATUS WAS CHANGED TO DNR DURING DAY SHIFT YESTERDAY. PT HAS EXTREMELY BAD PERFUSION AND O2 SATS ARE VERY DIFFICULT TO OBTAIN. PT REFUSED TO ALLOW CATHETER CARE TO BE PERFORMED. PT HAS REEVALUATION WITH CURRENT RESIDENCE [facility] TODAY [facility] EVALUATION FOR NEEDS UPON DISCHARGE. PT CURRENTLY RESTING WITH BED ALARM ON, BED IN LOWEST POSITION, AND CALL LIGHT WITHIN REACH.
--- NOTE | 2023-11-07 07:21 | NUR ---
DR. RODRIGUES UP TO FLOOR DURING SHIFT REPORT. DR. RODRIGUES ASKED [employer] WHAT THE SPO2 READING THEY GOT ON THE PATIENT WAS- NIGHTSHIFT RN REPORTED [address] RODRIGUES HAD O2 REMOVED.
[2023-11-07 08:25] LABS: Bun/Creatinine Ratio 42.9 (12.0-20.0); Calcium, Blood 8.9 mg/dL (8.5-10.1); Creatinine, Blood 1.4 mg/dL (0.40-1.00); Potassium, Blood 5.2 mmol/L (3.5-5.5)
[2023-11-07 08:50] LABS: BASOPHILS ABSOLUTE AUTO 0.02 K/mm3 (0.00-0.23); BASOPHILS PERCENT AUTO 0 % (0-2); EOSINOPHILS PERCENT AUTO 0 % (0-6); Hematocrit 43.7 % (33.0-51.0); Hemoglobin 13.7 g/dL (11.5-16.0); IMMATURE GRAN ABSOLUTE AUTO 0.04 K/mm3 (0.00-0.10); IMMATURE GRAN PERCENT AUTO 1 % (0-1); LYMPHOCYTES ABSOLUTE AUTO 0.68 K/mm3 (0.84-5.20); LYMPHOCYTES PERCENT AUTO 8 % (21-46); MONOCYTES ABSOLUTE AUTO 0.58 K/mm3 (0.16-1.47); MONOCYTES PERCENT AUTO 7 % (4-13); Mean Corpuscular HGB 29.3 pg (26.0-34.0); Mean Corpuscular HGB Conc 31.4 g/dL (31.5-36.5); Mean Corpuscular Volume 94 fL (80-100); Mean Platelet Volume 12.1 fL (9.1-12.4); NEUTROPHILS ABSOLUTE AUTO 7.53 K/mm3 (1.96-9.15); NEUTROPHILS PERCENT AUTO 85 % (41-73); NRBC Auto 1.1 /100 WBC (0.0-0.2); Platelet Count 115 K/mm3 (150-400); RDW Coefficient Variation 16.9 % (11.7-14.2); RDW Standard Deviation 57.3 fL (35.1-46.3); Red Blood Cell Count 4.67 M/mm3 (3.80-5.20); White Blood Cell Count 8.85 K/mm3 (4.00-11.30)
[2023-11-07 08:53] VITALS: BP 90/58
--- NOTE | 2023-11-07 08:55 | NUR ---
CALLED IN REGARDS TO PATIENTS SPO2 READING OF 67 THIS AM. PATIENT HAS POOR PERFUSION THIS RN UNCLEAR IF READING IS ACCURATE. DR. RODRIGUES ORDERED FOR STAT ABG.
[2023-11-07 10:18] LABS: PCO2 Arterial 55.6 mmHg (35-45); pH Blood Arterial 7.28 (7.35-7.45)
[2023-11-07 10:19] LABS: PO2 Arterial 37.3 mmHg (80-100)
[2023-11-07] MEDS ORDERED: Furosemide 10 MG / ML 2ML Vial IV SCH (11:00)
--- NOTE | 2023-11-07 11:04 | NUR ---
AT BEDSIDE THIS MORNING. PATIENT HYPOXIC SATTING 59 VIA ABG. DISCUSSED WITH PLAN- TO TALK WITH PALLIATIVE CARE. PATIENT TO CONTINUE TO USE NON-REBREATHER MASK AT 15L'S RT IS FOLLOWING.
[2023-11-07] MEDS ORDERED: Atropine Sulfate 1% Opth Soln 2ML BTL SL PRN (11:25)
[2023-11-07] MEDS ORDERED: Morphine Sulfate 20 MG/1ML 1 ML Oral Syringe SL PRN (11:30)
[2023-11-07] MEDS ORDERED: Acetaminophen 650 MG Supp PR PRN (11:30)
[2023-11-07] MEDS ORDERED: LORazepam 1 MG Tab PO PRN (11:30)
[2023-11-07] MEDS ORDERED: Scopolamine Hydrobromide Patch TOP PRN (11:30)
[2023-11-07] MEDS ORDERED: LORazepam 2 MG/ML 1ML Injection IV PRN (11:30)
[2023-11-07] MEDS ORDERED: Ondansetron HCl 2 MG / ML 2ML Vial IV PRN (11:30)
--- NOTE | 2023-11-07 14:25 | NUR ---
MULTIPULE VISITS WITH FAMILY RE: GOALS OF CARE AND SYMPTOM MANAGEMENT PROVIDER SPOKE WITH MICHELLE BILLY BY PHONE AND ADVISED FAMILY COME IN TO SEE PT SOONER THAN LATER. THIS AFTERNOON BOTH CAM AND DTR WERE AT PT'S BEDSIDE. SUPPORTIVE VISIT PROVIDED. NOTIFIED BY PRIMARY RN, PT'S TOD WAS 11/07/23 @ 1440. RIGHT THUMB PRINT OBTAINED ON A WHITE CARD. MICHELLE ASKED FOR JUST THE PRINTS TO TAKE HOME. THIS PC RN REMOVED PT'S GOLD COLORED RING ON HER RIGHT RING FINGER PER MICHELLE'S REQUEST. RING GIVEN TO MICHELLE IN A CLEAR ZIPLOCK BAG.
--- NOTE | 2023-11-07 14:40 | NUR ---
PATIENT : TIME OF 1440. PATIENTS FAMILY IN AT BEDSIDE. DR. COURTNEY NOTIFIED AT 1446.
--- NOTE | 2023-11-07 15:01 | NUR ---
PALLIATIVE CARE NURSE IN ROOM WITH FAMILY. FINGER PRINT OBTAINED AND MADE INTO A KEEP SAKE FOR FAMILY. PATIENT HOME IS [place]. FAMILY IS TAKING HOME PATIENTS GOLD RING-REMOVED BY PIETRO FROM PALLIATIVE CARE AND PLACED IN A BAGGIE AND GIVEN TO JESUS MARTINEZ.
--- NOTE | 2023-11-07 16:27 | NUR ---
PT REMOVAL PT [facility].
== END 2023-11-07 14:40 | DRG 682 ==
LOC: ER 14:39 → MEDS 14:40 → ENPENDDIS 11-05 16:13 → MEDS 11-07 14:40
PROVIDERS: Emergency Medicine; ADMIT Internal Medicine
PROC: 0T9B70Z Drainage of Bladder with Drainage Device, Via Natural or Artificial Opening (ICD-10-PCS; 2023-11-03)
PROC: 4A033R1 Measurement of Arterial Saturation, Peripheral, Percutaneous Approach (ICD-10-PCS; principal; 2023-11-07)
DX: N17.9 Acute kidney failure, unspecified (principal); E43 Unspecified severe protein-calorie malnutrition; I50.22 Chronic systolic (congestive) heart failure; N39.0 Urinary tract infection, site not specified; E87.20 Acidosis, unspecified; Z68.1 Body mass index [BMI] 19.9 or less, adult; Z51.5 Encounter for palliative care; Z66 Do not resuscitate; E86.0 Dehydration; E03.9 Hypothyroidism, unspecified; R33.9 Retention of urine, unspecified; I11.0 Hypertensive heart disease with heart failure; D50.9 Iron deficiency anemia, unspecified; J43.9 Emphysema, unspecified; R41.81 Age-related cognitive decline; I48.91 Unspecified atrial fibrillation; F41.9 Anxiety disorder, unspecified; I08.3 Combined rheumatic disorders of mitral, aortic and tricuspid valves; Z88.5 Allergy status to narcotic agent; Z88.1 Allergy status to other antibiotic agents; Z88.8 Allergy status to other drugs, medicaments and biological substances; Z87.891 Personal history of nicotine dependence; Z79.01 Long term (current) use of anticoagulants
CPT/HCPCS: 36415; 36600; 51702; 71045; 71046; 80048; 80053; 80202; 81001; 82570; 82803; 83690; 83735; 84100; 84300; 84540; 85025; 87040; 87077; 87086; 87186; 93005; 93010; 94760; 96361; 96365; 96367; 97110; 97116; 97162; 99285-25; A9270; G0378; J0696; J0744; J1940; J2060; J3370; J3475; J7030; J7050; J7060; P9612